=== PATIENT | female | born 1975 | race Caucasian/White ===

== ENCOUNTER 2019-06-03 14:49 | Emergency (ER) | payer MEDICAID, SELFPAY ==
[2019-06-03 15:01] VITALS: BP 113/82; PULSE 86; RESP 18; TEMP 37.4; O2SAT 100
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
== END 2019-06-03 15:44 | disposition home or self-care (01) ==
PROVIDERS: Emergency Provider Nurse Practitioner Family
DX: J06.9 Acute upper respiratory infection, unspecified (principal); S30.814A Abrasion of vagina and vulva, initial encounter; W50.4XXA Accidental scratch by another person, initial encounter; G25.81 Restless legs syndrome; F41.9 Anxiety disorder, unspecified; F32.9 Major depressive disorder, single episode, unspecified; I83.93 Asymptomatic varicose veins of bilateral lower extremities
CPT/HCPCS: 81003; 87804; 99213; G0463

== ENCOUNTER 2019-06-24 12:55 | Emergency (ER) | payer OTHER, SELFPAY ==
--- NOTE | 2019-06-24 13:03 | ED.URI ---
HPI - URI/Sore Throat General Chief Complaint: Upper Respiratory Infection Stated Complaint: pos sinus infection Time Seen by Provider: 06/24/19 13:05 Source: patient and RN notes reviewed Mode of arrival: ambulatory Limitations: no limitations History of Present Illness HPI Narrative: 43-year-old female presents with concern for sinus pain, pressure, ear pain for 2 months. Reports at the end of April she was given a round of amoxicillin for sinusitis, reports symptoms improved briefly however did not resolve and continue. She denies cough, fever, body aches, chills. Reports malaise. Reports taking Flonase, antihistamines with no relief. MD elicited complaint: nasal congestion Related Data Home Medications Medication Instructions Recorded Confirmed duloxetine [Cymbalta] 60 mg PO DAILY 06/24/19 06/24/19 montelukast [Singulair] 10 mg PO DAILY 06/24/19 06/24/19 ropinirole [Requip] 2 mg PO DAILY 06/24/19 06/24/19 Allergies Allergy/AdvReac Type Severity Reaction Status Date / Time hydrocodone Allergy Unknown Nausea and Verified 06/24/19 13:13 Vomiting rabeprazole Allergy Unknown Rash Verified 06/24/19 13:13 Sulfa (Sulfonamide Allergy Unknown Rash Verified 06/24/19 13:13 Antibiotics) Review of Systems Review of Systems: Narrative: CONSTITUTIONAL: Reports malaise. Denies chills, sweats, or fever. EYES: Denies visual changes, redness, or discharge. ENT: Reports rhinorrhea, congestion, sinus pain, otalgia. Denies sore throat. CARDIOVASCULAR: Denies chest pain, palpitations, or edema. RESPIRATORY: Denies cough or dyspnea. GASTROINTESTINAL: Denies abdominal pain, nausea, vomiting, diarrhea SKIN: Denies rash or itching. MUSCULOSKELETAL: Denies myalgia. NEUROLOGIC: Reports headache. All systems reviewed & are unremarkable except as noted in HPI and below PMFSH Past Medical History Medical History (Updated 06/24/19 @ 13:16 by Tessie Decker NP) Anxiety Asthma Depression Restless leg syndrome Umbilical hernia Varicose veins of both lower extremities Surgical History Surgical History (Updated 06/03/19 @ 15:55 by MEGHAN Garcia) History of cholecystectomy History of hernia surgery umbilical History of varicose vein ligation and stripping Family History Family History (Updated 06/03/19 @ 15:56 by MEGHAN Garcia) Grandparent Heart disease Grandparent Diabetes mellitus Social History Social History Smoking packs per day: 1 Smoking cigarettes per day: 20.0 Years smoked: 26 Smoking pack-years: 26.00 Smoking status: Current every day smoker Tobacco type: cigarettes Alcohol intake: current Substance use: never Substance use type: does not use Gender identity (if verbalized by the patient): Female Spiritual care concerns: No Agree to blood products: Yes Comments At time of signature, agree with nursing past medical, surgical, social and family history. There is no relevant family history pertinent to the presenting complaint Exam Narrative: Exam Narrative: GENERAL: Well-appearing, well-nourished, and in no acute distress. HEAD: Normocephalic EYES: PERRLA, conjunctivae clear ENT: Nares clear, turbinates edematous and erythematous, sinus tenderness. Mucous membranes moist. TM pearly dumont with dull light reflex bilaterally; no tragal tenderness. Oropharynx not erythematous without lesions. Tonsils not enlarged and without exudate, no drooling, no hoarseness, no trismus, uvula midline. NECK: Supple. No lymphadenopathy CHEST: Clear to auscultation, breath sounds equal. No wheezing, rhonchi, rales, or stridor. No respiratory distress, speaks in full sentences. HEART: Regular rate and rhythm. No murmur heard. SKIN: Warm, dry, no rash. NEURO: Alert and oriented x3. PSYCH: Normal mood and affect Course Course Emergency Course: Patient is aware of diagnosis, understands and agrees to treatment plan. Anti
[2019-06-24 13:04] VITALS: BP 144/70; PULSE 79; RESP 18; TEMP 36.8; O2SAT 100
== END 2019-06-24 13:27 | disposition home or self-care (01) ==
PROVIDERS: Emergency Provider Nurse Practitioner; PCP Family Medicine
DX: J01.90 Acute sinusitis, unspecified (principal); F17.210 Nicotine dependence, cigarettes, uncomplicated; F41.9 Anxiety disorder, unspecified; J45.909 Unspecified asthma, uncomplicated; F32.9 Major depressive disorder, single episode, unspecified; G25.81 Restless legs syndrome
CPT/HCPCS: 99213; G0463

== ENCOUNTER 2019-09-08 14:00 | Emergency (ER) | payer OTHER, SELFPAY ==
[2019-09-08 14:13] VITALS: BP 124/70; PULSE 75; RESP 16; TEMP 37.1; O2SAT 99
--- NOTE | 2019-09-08 14:24 | ED.LOWEXIN ---
HPI - Extremity Injury (Lower) General Chief Complaint: Extremity Injury, Lower Stated Complaint: possible insect bite left foot Time Seen by Provider: 09/08/19 14:24 Source: patient and RN notes reviewed History of Present Illness HPI Narrative: Patient is a 43-year-old female who presents the urgent care with complaints of a bee sting to the top of the left foot. Patient states it happened approximately 1 week ago and she has been using Benadryl and anti-itch cream. Patient states that it seems to have gotten more tender with surrounding redness and swelling. Patient denies of any known fever, chills, nausea, vomiting. States that she has had a reaction in the past to a wasp. Denies of any shortness of breath or chest pain. No other acute complaints. No acute distress noted. Patient read the plan of care. Related Data Allergies Allergy/AdvReac Type Severity Reaction Status Date / Time hydrocodone Allergy Unknown Nausea and Verified 06/24/19 13:13 Vomiting rabeprazole Allergy Unknown Rash Verified 06/24/19 13:13 Sulfa (Sulfonamide Allergy Unknown Rash Verified 06/24/19 13:13 Antibiotics) Review of Systems Review of Systems: Narrative: CONSTITUTIONAL: Denies fever, chills, or sweats. EYES: Denies visual changes, redness, or discharge. ENT: Denies rhinorrhea, congestion, sore throat, or otalgia. CARDIOVASCULAR: Denies chest pain, palpitations, or edema. RESPIRATORY: Denies cough or dyspnea. GASTROINTESTINAL: Denies abdominal pain, nausea, vomiting, or diarrhea. GENITOURINARY: Denies dysuria or hematuria. SKIN: Reports of a bee sting to the top of the left foot MUSCULOSKELETAL: Denies back pain, joint pain, or myalgia. NEUROLOGIC: Denies headache, numbness, or weakness. All other systems reviewed are negative, except as documented in HPI. [facility] Past Medical History Medical History (Updated 09/08/19 @ 14:37 by MEGHAN Lozano) Anxiety Asthma Depression Restless leg syndrome Umbilical hernia Varicose veins of both lower extremities Surgical History Surgical History (Updated 06/03/19 @ 15:55 by MEGHAN Garcia) History of cholecystectomy History of hernia surgery umbilical History of varicose vein ligation and stripping Family History Family History (Updated 06/03/19 @ 15:56 by MEGHAN Garcia) Grandparent Heart disease Grandparent Diabetes mellitus Social History Social History Smoking packs per day: 1 Smoking cigarettes per day: 20.0 Years smoked: 26 Smoking pack-years: 26.00 Smoking status: Current every day smoker Tobacco type: cigarettes Alcohol intake: current Substance use: never Substance use type: does not use Gender identity (if verbalized by the patient): Female Spiritual care concerns: No Agree to blood products: Yes Comments At the time of my signature, I reviewed and agree with the nursing past medical, surgical, social, and family history. There is no relevant family history pertinent to the patient complaint. Exam Narrative: Exam Narrative: GENERAL: This is a well-nourished, well-developed patient, in no apparent distress. HEAD: normocephalic, atraumatic. EYES: PERRL. Sclera clear/white. Vision is grossly intact. EARS: External ears normal NOSE: External nose normal with no obvious nasal discharge, nares without redness, no rhinorrhea. THROAT: Mucous membranes moist NECK: Neck supple SKIN: warm, intact with no suspicious lesions or rash, good texture and turgor. NEURO: awake, alert, and oriented to person, place and time. There were no obvious focal neurologic abnormalities. EXTREMITIES: Mild edema and erythema noted to the dorsal aspect of the left foot approximately 4 x 4 cm with mild tenderness. Left pedal pulse within normal limits with capillary refill less than 2 seconds Course Vital Signs Vital signs: Vital Signs Temperature 98.8 F 09/08/19 14:13 Pulse
== END 2019-09-08 14:58 | disposition home or self-care (01) ==
PROVIDERS: Emergency Provider Nurse Practitioner Family; PCP Family Medicine
DX: T63.444A Toxic effect of venom of bees, undetermined, initial encounter (principal); F17.210 Nicotine dependence, cigarettes, uncomplicated
CPT/HCPCS: 99213; G0463

== ENCOUNTER 2019-10-17 10:59 | Outpatient (CLI) | payer OTHER, SELFPAY ==
--- NOTE | ~2019-10-17 | US_ITS ---
EXAMINATION: US pelvic complete w TV DATE: 10/17/2019 11:54 INDICATION: Abnormal uterine bleeding. IUD check. Comparison:Ultrasound dated 01/13/2014 TECHNIQUE: Multiple transabdominal and endovaginal sonographic images of the pelvis performed. FINDINGS: The uterus measures 8.6 x 3.5 x 4.5 cm. IUD is identified in the lower uterine segment. The endometrial complex measures 4 mm. The right ovary measures 3.4 x 3.2 x 2.7 cm and the left ovary not visualized. There are follicles of the right ovary, largest measuring 1.4 cm. There is no free fluid in the pelvis. There are no abnor mal masses seen on either side. IMPRESSION: 1. IUD present in the lower uterine segment. Otherwise, unremarkable pelvic ultrasound. Reviewed, dictated and finalized at location A. IMPRESSION: 1. IUD present in the lower uterine segment. Otherwise, unremarkable pelvic ult rasound.
== END 2019-10-17 11:00 | disposition home or self-care (01) ==
PROVIDERS: PCP Family Medicine
DX: N93.9 Abnormal uterine and vaginal bleeding, unspecified (principal); Z97.5 Presence of (intrauterine) contraceptive device
CPT/HCPCS: 76830; 76856

== ENCOUNTER 2020-05-04 09:04 | Emergency (ER) | payer OTHER, SELFPAY ==
--- NOTE | 2020-05-04 09:19 | ED.URI ---
HPI - URI/Sore Throat General Chief Complaint: Upper Respiratory Infection Stated Complaint: Upper respiratory Source: patient History of Present Illness HPI Narrative: Patient is a 44 yo female who reports that she has had sinus pain, congestion and headache x 9 days. She reports person living in her household had encounter with positive Covid. She also reports sore throat, body aches, fatigue, mild cough. She denies fever, or other complaints. She reports using Flonase without relief. She reports a history of sinus infections in the past. Related Data Allergies Allergy/AdvReac Type Severity Reaction Status Date / Time hydrocodone Allergy Mild Nausea and Verified 05/04/20 09:15 Vomiting rabeprazole Allergy Unknown Rash Verified 06/24/19 13:13 Sulfa (Sulfonamide Allergy Unknown Rash Verified 06/24/19 13:13 Antibiotics) Review of Systems Review of Systems: Narrative: CONSTITUTIONAL: Denies fever, chills, or sweats. EYES: Denies visual changes, redness, or discharge. ENT: Denies rhinorrhea, reports congestion and sore throat. CARDIOVASCULAR: Denies chest pain, palpitations, or edema. RESPIRATORY: Reports cough, denies dyspnea. GASTROINTESTINAL: Denies abdominal pain, nausea, vomiting, or diarrhea. GENITOURINARY: Denies dysuria or hematuria. SKIN: Denies rash or itching. MUSCULOSKELETAL: Denies back pain, joint pain, or myalgia. NEUROLOGIC: Reports headache, denies numbness, dizziness, or weakness. PSYCHIATRIC: Denies anxiety or depression. [facility] Past Medical History Medical History Anxiety Asthma Depression Restless leg syndrome Umbilical hernia Varicose veins of both lower extremities Surgical History Surgical History History of cholecystectomy History of hernia surgery umbilical History of varicose vein ligation and stripping Family History Family History Grandparent Heart disease Grandparent Diabetes mellitus Social History Social History Smoking packs per day: 1 Smoking cigarettes per day: 20.0 Years smoked: 26 Smoking pack-years: 26.00 Smoking status: Current every day smoker Tobacco type: cigarettes Alcohol intake: current Substance use: never Substance use type: does not use Gender identity (if verbalized by the patient): Female Spiritual care concerns: No Agree to blood products: Yes Comments At the time of signature, I have reviewed and agree with nursing past medical, surgical, social, and family history unless otherwise noted. Please see nursing chart for further information. There is no relevant family history pertinent to the presenting complaint. Exam Narrative: Exam Narrative: GENERAL: Well-appearing, well-nourished, and in no acute distress. HEAD: Normocephalic, atraumatic. EYES: EOMI. No redness or drainage. ENT: Mucous membranes pink and moist. Nares clear. No rhinorrhea. Throat with mild erythema. Uvula midline. Frontal and maxillary sinus pressure with palpation. NECK: AROM. Supple. No lymphadenopathy. CHEST: No respiratory distress. HEART: Regular rate and rhythm. EXTREMITIES: Normal range of motion. SKIN: Warm, dry, no rash. NEURO: No focal deficits. Alert and oriented x3. Gait steady. PSYCH: Normal affect. No signs of depression or anxiety. Course Vital Signs Vital signs: Vital Signs Temperature 36.8 C 05/04/20 09:27 Pulse Rate 82 05/04/20 09:27 Respiratory Rate 16 05/04/20 09:27 Blood Pressure 119/64 05/04/20 09:27 Pulse Oximetry 99 05/04/20 09:27 Temperature 36.8 C 05/04/20 09:27 Pulse Rate 82 05/04/20 09:27 Respiratory Rate 16 05/04/20 09:27 Blood Pressure 119/64 05/04/20 09:27 Pulse Oximetry 99 05/04/20 09:27 MDM - URI/Sore Throat MDM Narrative Medical decision
[2020-05-04 09:27] VITALS: BP 119/64; PULSE 82; RESP 16; TEMP 36.8; O2SAT 99
[2020-05-05 14:05] LABS: SARS-CoV-2 RNA PCR Positive
== END 2020-05-04 09:47 | disposition home or self-care (01) ==
PROVIDERS: Emergency Provider Nurse Practitioner; PCP Family Medicine
DX: U07.1 COVID-19 (principal); J45.909 Unspecified asthma, uncomplicated; G25.81 Restless legs syndrome; I83.93 Asymptomatic varicose veins of bilateral lower extremities; F17.210 Nicotine dependence, cigarettes, uncomplicated
CPT/HCPCS: 99213; C9803; G0463; U0003; U0005

== ENCOUNTER → 2020-06-21 03:10 | Outpatient (CLI) | payer OTHER, SELFPAY ==
[2020-06-21 21:05] LABS: SARS-CoV-2 RNA PCR Positive
== END ==
PROVIDERS: PCP Family Medicine; Visit Provider Internal Medicine Critical Care Medicine
DX: Z01.812 Encounter for preprocedural laboratory examination (principal); U07.1 COVID-19
CPT/HCPCS: C9803; U0003; U0005

== ENCOUNTER 2020-10-15 11:34 | Emergency (ER) | payer OTHER, SELFPAY ==
[2020-10-15 11:45] VITALS: BP 130/85; PULSE 78; RESP 18; TEMP 36.6; O2SAT 100
--- NOTE | 2020-10-15 11:57 | ED.FEMALEGU ---
HPI - Female Genitourinary General Chief complaint: Urogenital-Female Stated complaint: Sinus,Bladder Time Seen by Provider: 10/15/20 11:57 Source: patient and RN notes reviewed Mode of arrival: ambulatory Limitations: no limitations History of Present Illness HPI Narrative: 44-year-old female presents to the [facility] with 2 separate complaints. Patient states complaint #1 that she thinks she has a UTI. Has had intermittent abd discomfort over the last 2 to 3 weeks suprapubic pressure and urinary frequency. Denies burning. Denies fevers. Denies nausea vomiting or diarrhea. states that she did start her period today. Reports that it does not feel like her normal. Pain. 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 Has tried [id number] products with no relief. States sinus symptoms have been going on for almost 3 weeks, worse over the last couple of days. Related Data Allergies Allergy/AdvReac Type Severity Reaction Status Date / Time hydrocodone Allergy Mild Nausea and Verified 10/15/20 12:04 Vomiting rabeprazole Allergy Unknown Rash Verified 10/15/20 12:04 Sulfa (Sulfonamide Allergy Unknown Rash Verified 10/15/20 12:04 Antibiotics) Review of Systems Review of Systems: All systems reviewed & are unremarkable except as noted in HPI and below Constitutional: Constitutional: Reports no additional constitutional complaints, Denies chills and Denies fatigue Eyes: Eyes: Reports no additional eye complaints, Denies change in vision and Denies photophobia ENT: Reports as per HPI and Reports nasal congestion Cardiovascular: Cardiovascular: Reports no additional cardiovascular complaints and Denies chest pain Respiratory: Respiratory: Reports no additional respiratory complaints, Denies cough, Denies dyspnea and Denies wheezing Gastrointestinal: Gastrointestinal: Reports abdominal pain (Lower over the last 2 to 3 weeks, none today), Denies nausea and Denies vomiting Genitourinary: Genitourinary: Reports as per HPI and Reports nocturia Musculoskeletal: Musculoskeletal: Reports no additional musculoskeletal complaints Integumentary/Breasts: Skin/Breast: Reports system reviewed and no additional complaints, except as docu Neurologic: Reports system reviewed and no additional complaints, except as documented Psychiatric: Psychiatric: Reports no additional psychiatric complaints Allergic/Immunologic: Allergic/Immunologic: Reports no additional allergic/immunologic complaints, Denies lip swelling, Denies throat swelling and Denies tongue swelling PMF Past Medical History Medical History Anxiety Asthma Depression Restless leg syndrome Umbilical hernia Varicose veins of both lower extremities Surgical History Surgical History History of cholecystectomy History of hernia surgery umbilical History of varicose vein ligation and stripping Family History Family History Grandparent Heart disease Grandparent Diabetes mellitus Grandparent Hypertension Family history of coronary artery disease Family history of heart disease in male family member before age 55 Diabetes mellitus Family history of blood dyscrasia Family history of arthritis Family history of chronic obstructive pulmonary disease Family history of Alzheimer's disease Family history of lung cancer, Onset Age: 80 Family history of dementia Mother Family history of malignant neoplasm of breast in first degree relative Diabetes mellitus Family history of hypercholesterolemia Family history of malignant neoplasm of breast Sibling Family history of hypercholesterolemia Social History Social History Smoking packs per day: 1 Smoking cigar
== END 2020-10-15 12:15 | disposition home or self-care (01) ==
PROVIDERS: Emergency Provider Nurse Practitioner; PCP Family Medicine
DX: J01.40 Acute pansinusitis, unspecified (principal); F17.210 Nicotine dependence, cigarettes, uncomplicated; J45.909 Unspecified asthma, uncomplicated; G25.81 Restless legs syndrome; I83.93 Asymptomatic varicose veins of bilateral lower extremities
CPT/HCPCS: 81003; 99213; G0463

== ENCOUNTER 2020-12-28 16:58 | Outpatient (CLI) | payer OTHER, SELFPAY ==
--- NOTE | ~2020-12-28 | MM_ITS ---
EXAMINATION: MM screening irene BI w theresa HISTORY: Screening mammogram TECHNIQUE: Craniocaudal and mediolateral oblique 3-D tomosynthesis images were obtained and synthetic 2-D images were generated. CAD analysis was submitted and interpreted. COMPARISON: 01/11/2019, 01/13/2014 bilateral digital screening mammogram examinations BREAST PARENCHYMAL COMPOSITION: There are scattered areas of fibroglandular density. FINDINGS: There is no evidence of suspicious mass, calcification, or architectural distortion to sugg est malignancy in either breast. There has been no suspicious interval change. IMPRESSION: 1. No mammographic evidence of malignancy. 2. Recommend routine screening mammography in one year. BI-RADS Category 1: Negative Reviewed, dictated and finalized at location A.
== END 2020-12-28 16:59 | disposition home or self-care (01) ==
LOC: ANHIMG 17:03
PROVIDERS: PCP Family Medicine; Visit Provider Advanced Practice Midwife
DX: Z12.31 Encounter for screening mammogram for malignant neoplasm of breast (principal)
CPT/HCPCS: 77063; 77067

== ENCOUNTER 2021-02-04 11:28 | Outpatient (CLI) | payer OTHER, SELFPAY ==
--- NOTE | ~2021-02-04 | US_ITS ---
EXAMINATION: US venous doppler LE RT DATE: 02/04/2021 12:42 INDICATION: Right lower limb pain TECHNIQUE: Smith scale images without and with compression and Doppler images of the right lower extre mity veins were obtained. COMPARISON: 08/13/2015 FINDINGS: The right common femoral vein, profunda femoral vein, femoral vein, popliteal vein, peronea l trunk, posterior tibial veins, and greater saphenous vein are patent. Superficial phlebitis is note d in the lower thigh. IMPRESSION: 1. Patent right lower extremity veins. No evidence of deep venous thrombosis. 2. Superficial phlebitis of the lower thigh. Reviewed, dictated and finalized at location A.
== END 2021-02-04 11:29 | disposition home or self-care (01) ==
LOC: ANHIMG 11:34
PROVIDERS: PCP Family Medicine; Visit Provider Family Medicine
DX: M79.604 Pain in right leg (principal); I80.8 Phlebitis and thrombophlebitis of other sites
CPT/HCPCS: 93971

== ENCOUNTER 2021-02-16 10:22 | Emergency (ER) | payer OTHER, SELFPAY ==
--- NOTE | ~2021-02-16 | US_ITS ---
EXAMINATION:US venous doppler LE RT INDICATION:Right lower extremity pain and swelling TECHNIQUE: Multiple grayscale, color flow and Doppler images of the right lower extremity deep venous systems were obtained and reviewed. COMPARISON:02/04/2021 FINDINGS: The common femoral, superficial femoral and popliteal veins demonstrate normal respiratory variation, augmentation and compressibility. Color flow is also seen within the posterior tibial, pe roneal, greater saphenous and profunda veins. IMPRESSION: 1: No lower extremity deep venous thrombosis. Reviewed, dictated and finalized at location A. HER OPERATOR
[2021-02-16 10:28] VITALS: BP 120/63; PULSE 81; RESP 18; TEMP 36.2; O2SAT 100
--- NOTE | 2021-02-16 11:02 | ED.LOWEXIN ---
HPI - Extremity Injury (Lower) General Chief Complaint: Extremity Injury, Lower <Yohana Butler PA-C - Last Filed: 02/16/21 13:12> Stated Complaint: right leg pain. hx thrombophlebitis <Yohana Butler PA-C - Last Filed: 02/16/21 13:12> Time Seen by Provider: 02/16/21 10:51 <SHANNON Black Last Filed: 02/16/21 13:12> Source: patient <SHANNON Black Last Filed: 02/16/21 13:12> Mode of arrival: ambulatory <SHANNON Black Last Filed: 02/16/21 13:12> Limitations: no limitations <SHANNON Black Last Filed: 02/16/21 13:12> History of Present Illness HPI Narrative: This is a 45 year old female that presents to the ER for right lower extremity pain present over the last week and a half. Reports she was diagnosed with superficial thrombophlebitis by her primary provider. She had an ultrasound of the leg. Reports she has been on scheduled anti-inflammatories and has taken an antibiotic without relief. Reports the area of pain is now larger. The pain is radiating into her calf as well. Denies fever, chest pain, or shortness of breath. <Yohana Butler PA-C - Last Filed: 02/16/21 13:12> Related Data Home Medications: Home Medications Medication Instructions Recorded Confirmed Lactobacillus rhamnosus GG 10 1 cap PO DAILY 02/04/21 billion cell capsule <SHANNON Black Last Filed: 02/16/21 13:12> Allergies/Adverse Reactions: Allergies Allergy/AdvReac Type Severity Reaction Status Date / Time hydrocodone Allergy Mild Nausea and Verified 02/16/21 11:00 Vomiting rabeprazole Allergy Unknown Rash Verified 02/16/21 11:00 Sulfa (Sulfonamide Allergy Unknown Rash Verified 02/16/21 11:00 Antibiotics) <SHANNON Black Last Filed: 02/16/21 13:12> Review of Systems Review of Systems: CONSTITUTIONAL: Denies fever SKIN: Denies rash MUSCULOSKELETAL: Reports myalgia. NEUROLOGIC: Denies numbness <Yohana Butler PA-C - Last Filed: 02/16/21 13:12> All systems reviewed & are unremarkable except as noted in HPI and below <Yohana Butler PA-C - Last Filed: 02/16/21 13:12> [facility] Past Medical History Medical History: Medical History Anxiety Asthma Depression Restless leg syndrome Umbilical hernia Varicose veins of both lower extremities <Yohana Butler PA-C - Last Filed: 02/16/21 13:12> Surgical History Surgical History: Surgical History History of cholecystectomy History of hernia surgery umbilical History of varicose vein ligation and stripping <Yohana Butler PA-C - Last Filed: 02/16/21 13:12> Family History Family History: Family History Grandparent Heart disease Grandparent Diabetes mellitus Grandparent Hypertension Family history of coronary artery disease Family history of heart disease in male family member before age 55 Diabetes mellitus Family history of blood dyscrasia Family history of arthritis Family history of chronic obstructive pulmonary disease Family history of Alzheimer's disease Family history of lung cancer, Onset Age: 80 Family history of dementia Mother Family history of malignant neoplasm of breast in first degree relative Diabetes mellitus Family history of hypercholesterolemia Family history of malignant neoplasm of breast Sibling Family history of hypercholesterolemia <Yohana Butler PA-C - Last Filed: 02/16/21 13:12> Social History Social History: Social History Smoking packs per day: 1 Smoking cigarettes per day: 20.0 Years smoked: 26 Smoking pack-years: 26.00 Smoking status: Current every day smoker Tobacco type: cigarettes Second hand tobacco smoke exposure: Yes Alcohol
[2021-02-16 11:35] LABS: Basophils Percent Auto 0.6 % (0.2-1.2); Hematocrit 37.6 % (37.0-47.0); Hemoglobin 12.8 g/dL (12.0-15.0); Immature Granulocyte Absolute 0.02 K/mm3 (0.00-0.031); Immature Granulocyte Percent A 0.4 % (0-0.5); Lymphocytes Absolute Auto 1.92 K/mm3 (0.9-3.2); Lymphocytes Percent Auto 39.9 % (18.3-44.2); Monocytes Absolute Auto 0.3 K/mm3 (0.1-0.6); Monocytes Percent Auto 5.2 % (2.6-8.5); Neutrophils Absolute Auto 2.6 K/mm3 (1.3-6.7); Neutrophils Percent Auto 53.9 % (45.5-73.1); Platelet Count Result 186 k/mm3 (150-375); Red Blood Count 4.13 M/mm3 (4.2-5.4); Red Cell Distribution Width 12.9 % (11.5-14.5); White Blood Count 4.8 K/mm3 (4.5-10.0)
[2021-02-16 11:47] LABS: Anion Gap 3 mmol/L (8-16); Blood Urea Nitrogen 16 mg/dL (7-17); CRP < 0.5 mg/dL (<1.0); Calcium 8.6 mg/dL (8.4-10.2); Carbon Dioxide 27 mmol/L (22-30); Chloride 109 mmol/L (98-107); Estimated CRCL calculation 92 ml/min; Estimated Glomerular Filt Rate > 60; Glucose 96 mg/dL (65-110); Potassium 3.7 mmol/L (3.4-5.0); Sodium 139 mmol/L (137-145)
[2021-02-16 11:48] LABS: INR 0.9; Prothrombin Time 12.1 Seconds (11.1-14.7)
[2021-02-16 11:49] LABS: Partial Thromboplastin Time 25.9 SECONDS (22.3-36.8)
[2021-02-16 12:48] LABS: Erythrocyte Sedimentation Rate 15 mm/hr (0-20)
[2021-02-16 13:42] VITALS: BP 137/71; PULSE 68; RESP 14; TEMP 36.5; O2SAT 100
--- NOTE | 2021-02-16 13:45 | PC.NURSE ---
Infusaport flushed with appropriate dose of heparin. Infusaport discontinued.
== END 2021-02-16 13:45 | disposition home or self-care (01) ==
PROVIDERS: Physician Assistant; Emergency Provider Emergency Medicine; PCP Family Medicine
DX: I83.811 Varicose veins of right lower extremity with pain (principal); F17.210 Nicotine dependence, cigarettes, uncomplicated; F41.9 Anxiety disorder, unspecified; J45.909 Unspecified asthma, uncomplicated; F32.9 Major depressive disorder, single episode, unspecified; G25.81 Restless legs syndrome
CPT/HCPCS: 36415; 80048; 85025; 85610; 85652; 85730; 86140; 93971; 99284

== ENCOUNTER 2021-06-15 11:31 | Emergency (ER) | payer OTHER, SELFPAY ==
--- NOTE | ~2021-06-15 | CT_ITS ---
EXAMINATION: CT brain wo con INDICATION: Head injury COMPARISON: None TECHNIQUE: Standard unenhanced head CT. The dose-length product (DLP) was 605.33 mGy-cm. The mA was a djusted according to patient size. Iterative reconstruction technique was employed. FINDINGS: There is no intracranial hemorrhage, acute infarction, or abnormal mass lesion. The ventric les are normal. There is no abnormal mass effect or midline shift. The dumont-white matter differentiat ion is normal. The basal cisterns are patent. The orbits are normal. The paranasal sinuses, mastoids and calvarium are normal. IMPRESSION: 1. No acute intracranial abnormality. Reviewed, dictated and finalized at location B. BROILER OR FRY
[2021-06-15 11:34] VITALS: BP 139/69; PULSE 82; RESP 18; TEMP 36.1; O2SAT 100
--- NOTE | 2021-06-15 14:01 | ED.HEATRA ---
HPI - Head Injury General Chief complaint: Dizziness Stated complaint: dizzy/hit head Time Seen by Provider: 06/15/21 14:00 Source: patient Mode of arrival: ambulatory Limitations: no limitations History of Present Illness HPI Narrative: Patient is a 45-year-old female complaining of head pain accompanied by feeling dizzy after hitting her head on a cabinet yesterday. Patient states that her dizziness only occurs when she suddenly gets up too fast from a sitting position or sudden head movement. Patient currently denies being dizzy. Patient denies any loss of consciousness. Patient denies any other pain or injury. Patient denies any speech or visual disturbance, focal weakness or numbness, unsteady gait, chest pain, shortness of breath, abdominal pain, nausea or vomiting. Related Data Home Medications Medication Instructions Recorded Confirmed Lactobacillus rhamnosus GG 10 1 cap PO DAILY 02/04/21 04/28/21 billion cell capsule Allergies Allergy/AdvReac Type Severity Reaction Status Date / Time hydrocodone Allergy Mild Nausea and Verified 04/28/21 10:25 Vomiting rabeprazole Allergy Unknown Rash Verified 04/28/21 10:25 Sulfa (Sulfonamide Allergy Unknown Rash Verified 04/28/21 10:25 Antibiotics) Review of Systems Review of Systems: All systems reviewed & are unremarkable except as noted in HPI and below Constitutional: Constitutional: Denies body ache(s), Denies chills, Denies excessive sweating, Denies fatigue, Denies fever(s), Denies headache(s), Denies lethargy, Denies malaise, Denies weakness and Denies weight loss Eyes: Eyes: Denies blurry vision, Denies change in vision and Denies loss of vision ENT: Denies dizziness, Denies ear discharge, Denies headache(s), Denies lip swelling, Denies epistaxis, Denies nasal congestion, Denies neck pain, Denies throat swelling and Denies tongue swelling Cardiovascular: Cardiovascular: Denies chest pain, Denies chest pain at rest, Denies chest pain with activity, Denies diaphoresis, Denies rapid heart rate, Denies edema, Denies irregular heart rhythm, Denies lightheadedness, Denies palpitations, Denies dyspnea and Denies dyspnea on exertion Respiratory: Respiratory: Denies chest congestion, Denies cough, Denies hemoptysis, Denies dyspnea and Denies dyspnea on exertion Gastrointestinal: Gastrointestinal: Denies abdominal pain, Denies melena, Denies hematochezia, Denies diarrhea, Denies nausea, Denies vomiting and Denies hematemesis Musculoskeletal: Musculoskeletal: Denies abnormal gait, Denies deformity, Denies joint swelling, Denies limited range of motion, Denies neck pain and Denies numbness Neurologic: Denies Abnormal speech present, Denies abnormal gait, Denies confusion, Denies headache(s), Denies focal weakness, Denies loss of vision, Denies numbness, Denies Other visual disturbances, Denies Sensory deficit (Neuro) and Denies weakness Psychiatric: Psychiatric: Denies confusion, Denies depression, Denies auditory hallucinations, Denies homicidal ideation and Denies suicidal ideation Endocrine: Endocrine: Denies cold intolerance, Denies excessive sweating, Denies fatigue, Denies heat intolerance and Denies palpitations Hematologic/Lymphatic: Hematologic/Lymphatic: Denies easy bleeding and Denies easy bruising Allergic/Immunologic: Allergic/Immunologic: Denies lip swelling, Denies throat swelling and Denies tongue swelling PMFSH Past Medical History Medical History Anxiety Asthma Depression Restless leg syndrome Umbilical hernia Varicose veins of both lower extremities Surgical History Surgical History History of cholecystectomy History of hernia surgery umbilical History of varicose vein ligation and stripping Family History Family History Grandparent Heart disease Grandparent Diabetes m
[2021-06-15 14:04] VITALS: PULSE 77; RESP 27
[2021-06-15 14:05] VITALS: BP 144/67; PULSE 81; RESP 19; O2SAT 100
--- NOTE | 2021-06-15 14:08 | PC.NURSE ---
PT REPORTS SHE HIT HER HEAD ON THE CORNER OF A SHELF YESTERDAY AT WORK AND HAS HAD BOUTS OFF DIZZINESS SINCE THAT TIME. DENIES ANY LOC. PT STATES I JUST WANT TO MAKE SURE I DON'T HAVE A CONCUSSION.
[2021-06-15 15:10] VITALS: BP 123/48; PULSE 69; RESP 14; O2SAT 97
== END 2021-06-15 15:10 | disposition home or self-care (01) ==
PROVIDERS: Emergency Provider Emergency Medicine; PCP Family Medicine
DX: S06.0X0A Concussion without loss of consciousness, initial encounter (principal); F17.210 Nicotine dependence, cigarettes, uncomplicated; F41.9 Anxiety disorder, unspecified; J45.909 Unspecified asthma, uncomplicated; F32.9 Major depressive disorder, single episode, unspecified; W22.03XA Walked into furniture, initial encounter
CPT/HCPCS: 70450; 99284

== ENCOUNTER 2021-06-28 08:12 | Outpatient (CLI) | payer OTHER, SELFPAY ==
--- NOTE | 2021-06-30 12:24 | WPDHOMESLEEP ---
Sleep Study - Home Unattended Date of Study: 06/28/21 Ordering Provider: Guerda Bustillo DO Interpreting Provider: Agueda Guzman DO Home Sleep Study Type: Apnea Link Air Height: 1.83 m Weight: 97.522 kg Body Mass Index: 29.1 Neck Circumference (inches): 16.5 [place]: 0 Reason for Sleep Study Previously diagnosed with moderate BUCKY. Her CPAP machine isn't working so she isn't currently using one. Sleep History Rosalinda is a 45-year-old female with borderline personality disorder, restless legs syndrome asthma, IBS, depression and previously diagnosed BUCKY that had a home sleep test ordered by her primary care doctor to requalify for PAP therapy. The patient was previously diagnosed with moderate sleep apnea and was using her CPAP machine but then the machine broke. She rarely awakens from sleep short of breath. She occasionally awakens at night with heartburn, belching or cough. She frequently snores but it is rarely loud enough that others complain. She constantly has trouble sleeping when she has a cold. She rarely wakes up gasping for air throughout the night. She occasionally has breathing problems at night observed by others. She rarely sweats excessively at night. She denies heart palpitations or irregular heartbeats during the night. She denies falling asleep during the day and while driving. She denies cataplexy. She frequently has trouble at work due to sleepiness. She rarely feels unable to move while waking up or falling asleep. She rarely experiences vivid dreamlike scenes upon awakening or falling asleep. She frequently has nightmares. She occasionally remembers her dreams. She occasionally has thoughts racing through her mind. She occasionally feels sad or depressed. She frequently has anxiety. She occasionally has muscular tension. She frequently notices parts of her body jerk. She frequently kicks during the night. She frequently has crawling and aching feelings in her legs and occasionally has leg pain during the night. She rarely grinds her teeth during sleep rarely awakens with morning jaw pain. She is frequently bothered by pain during the day and frequently awakened by pain during the night. She frequently wakes up feeling stiff in the morning with sore or achy muscles. She frequently wakes up with pain in the neck, spine or other joints. She goes to bed at 10:30 p.m. on weekdays and midnight on the weekends. It takes her 30-60 minutes to fall asleep. She wakes up 4-6 times throughout the night. When she awakens, she will change positions and try to go back to sleep. She can fall back asleep within 5-15 minutes. She wakes up at 7:30 a.m. on the weekdays the between 9 and 10:00 a.m. on the weekends. She typically gets 7-9 hours of sleep per night. She will stay in bed for 15 minutes after waking up in the morning. She currently lives with her boyfriend and 20-year-old son. She does not consume any caffeinated beverages within 2 hours of bedtime. She does not engage in physical exercise before bedtime. She will read and watch television before falling asleep. She does not take naps in the afternoon or the evening. She drinks 1-3 caffeinated beverages per day. She will have 1 alcoholic beverage per day. She will smoke 1 pack of cigarettes per day. She denies recreational drug use. [facility] Past Medical History Medical History Anxiety Asthma Depression Restless leg syndrome Umbilical hernia Varicose veins of both lower extremities Surgical History Surgical History History of cholecystectomy History of hernia surgery umbilical History of varicose vein ligation and stripping Family History Family History Grandparent Heart disease Grandparent Diabetes mellitus Grandparent Hypertension Family history of coronary a
[2021-06-30 12:35] VITALS: BMI 29.1
== END 2021-06-29 10:40 | disposition home or self-care (01) ==
LOC: ANHCSM 08:13
PROVIDERS: PCP Family Medicine; Visit Provider Family Medicine
DX: G47.9 Sleep disorder, unspecified (principal)
CPT/HCPCS: 95806

== ENCOUNTER 2021-07-20 07:28 | Outpatient (CLI) | payer OTHER, SELFPAY ==
--- NOTE | 2021-08-04 17:27 | WPDSLEEPSTUD ---
Sleep Study Date of Study: 07/20/21 Ordering Provider: Guerda Bustillo DO Interpreting Physician: Agueda Guzman DO Sleep Study Type: Polysomnogram Height: 1.83 m Weight: 99.79 kg Body Mass Index: 29.8 Neck Circumference (inches): 13.5 [place]: 1 Reason for Sleep Study The patient had a HSAT on 06/28/2021 to requalify for PAP Therapy. She was previously on CPAP due to moderate sleep apnea. Recommended to have in-lab Split study. Sleep History Rosalinda is a 45-year-old female with borderline personality disorder, restless legs syndrome, asthma, IBS, depression and previously diagnosed BUCKY that had a home sleep test ordered by her primary care doctor to requalify for PAP therapy. The patient was previously diagnosed with moderate sleep apnea and was using her CPAP machine but then the machine broke. She rarely awakens from sleep short of breath. She occasionally awakens at night with heartburn, belching or cough. She frequently snores but it is rarely loud enough that others complain. She constantly has trouble sleeping when she has a cold. She rarely wakes up gasping for air throughout the night. She occasionally has breathing problems at night observed by others. She rarely sweats excessively at night. She denies heart palpitations or irregular heartbeats during the night. She denies falling asleep during the day and while driving. She denies cataplexy. She frequently has trouble at work due to sleepiness. She rarely feels unable to move while waking up or falling asleep. She rarely experiences vivid dreamlike scenes upon awakening or falling asleep. She frequently has nightmares. She occasionally remembers her dreams. She occasionally has thoughts racing through her mind. She occasionally feels sad or depressed. She frequently has anxiety. She occasionally has muscular tension. She frequently notices parts of her body jerk. She frequently kicks during the night. She frequently has crawling and aching feelings in her legs and occasionally has leg pain during the night. She rarely grinds her teeth during sleep rarely awakens with morning jaw pain. She is frequently bothered by pain during the day and frequently awakened by pain during the night. She frequently wakes up feeling stiff in the morning with sore or achy muscles. She frequently wakes up with pain in the neck, spine or other joints. She goes to bed at 10:30 p.m. on weekdays and midnight on the weekends. It takes her 30-60 minutes to fall asleep. She wakes up 4-6 times throughout the night. When she awakens, she will change positions and try to go back to sleep. She can fall back asleep within 5-15 minutes. She wakes up at 7:30 a.m. on the weekdays the between 9 and 10:00 a.m. on the weekends. She typically gets 7-9 hours of sleep per night. She will stay in bed for 15 minutes after waking up in the morning. She currently lives with her boyfriend and 20-year-old son. She does not consume any caffeinated beverages within 2 hours of bedtime. She does not engage in physical exercise before bedtime. She will read and watch television before falling asleep. She does not take naps in the afternoon or the evening. She drinks 1-3 caffeinated beverages per day. She will have 1 alcoholic beverage per day. She will smoke 1 pack of cigarettes per day. She denies recreational drug use. [facility] Past Medical History Medical History Anxiety Asthma Depression Restless leg syndrome Umbilical hernia Varicose veins of both lower extremities Surgical History Surgical History History of cholecystectomy History of hernia surgery umbilical History of varicose vein ligation and stripping Family History Family History Grandparent Heart disease Grandparent Diabetes mellitus Grandparent Hypertensi
[2021-08-04 17:35] VITALS: BMI 29.8
== END 2021-07-21 06:35 | disposition home or self-care (01) ==
LOC: ANHCSM 07:29
PROVIDERS: PCP Family Medicine; Visit Provider Family Medicine
DX: G47.9 Sleep disorder, unspecified (principal)
CPT/HCPCS: 95810

== ENCOUNTER → 2021-08-09 10:02 | Outpatient (CLI) | payer OTHER, SELFPAY ==
--- NOTE | ~2021-08-09 | XR_ITS ---
EXAMINATION: XR hand BI arthritis min 3V DATE: 08/09/2021 10:18 INDICATION: Myalgia, unspecified site, worsening TECHNIQUE: Posteroanterior, lateral, and oblique views of the left and of the right hands as well as a ballcatchers view of both hands were obtained. COMPARISON: None. FINDINGS: Bone alignment is normal. There is no fracture. No abnormal erosions are identified. The soft tissues are unremarkable. IMPRESSION: 1. Unremarkable hand radiographs. Reviewed, dictated and finalized at location A.
== END ==
PROVIDERS: PCP Family Medicine; Visit Provider Family Medicine
DX: M79.10 Myalgia, unspecified site (principal); M25.50 Pain in unspecified joint
CPT/HCPCS: 73130

== ENCOUNTER → 2021-09-28 10:25 | Outpatient (CLI) | payer OTHER, SELFPAY ==
--- NOTE | ~2021-09-28 | XR_ITS ---
EXAM: [id number] DATE: 09/28/2021 10:44 HISTORY: M54.2 - Cervicalgia, pain left side and posterior neck . COMPARISON: None available. FINDINGS: Craniocervical association and atlantoaxial joint are normal. No prevertebral soft tissue swelling. Cervical spine straightening. Lordosis reversal at C5-6. 1 to 2 mm anterolisthesis of C5 on C6. Vertebral body heights maintained. Mild disc space narrowing at C6-7. Mild facet hypertrophy on the left at C5-6 and C6-7. IMPRESSION: Grade 1 anterolisthesis of C5 on C6. Mild degenerative disc disease at C6-7. Lower cervic al facet arthropathy. Reviewed, dictated and finalized at location K. IMPRESSION: Grade 1 anterolisthesis of C5 on C6. Mild degenerative disc disease at C6-7. Lower cervical facet arthropathy.
== END ==
PROVIDERS: PCP Family Medicine; Visit Provider Family Medicine
DX: M47.812 Spondylosis without myelopathy or radiculopathy, cervical region (principal)
CPT/HCPCS: 72040

== ENCOUNTER 2021-10-31 09:38 | Outpatient (CLI) | payer OTHER, SELFPAY ==
--- NOTE | ~2021-10-31 | MR_ITS ---
EXAMINATION: MR cervical spine wo con DATE: 10/31/2021 10:17 INDICATION: TECHNIQUE: Magnetic resonance imaging (MRI) of the cervical spine was performed without intravenous c ontrast. Sequences included sagittal T2-weighted FSE, sagittal T2-weighted FS FSE, sagittal T1-weight ed FSE, axial MERGE, and axial T2-weighted FSE. COMPARISON: Xray C spine 09/28/2021. FINDINGS: Craniocervical association and atlantoaxial joint are intact. 2 mm anterolisthesis of C5 on C6, alignment otherwise intact. Loss of the normal lordosis as can be seen with positioning or muscl e spasm. Vertebral body heights are maintained. Loss of disc height and hydration at C5-6 and C6-7. T he cord signal is normal. Normal cervicomedullary junction. The following disc levels are specificall y discussed: C2-C3: The disc does not extend beyond the endplate margin. There is no uncovertebral joint osteoarth ritis. There is no facet joint osteoarthritis. There is no neural foraminal stenosis. There is no miguel tral canal stenosis. C3-C4: The disc does not extend beyond the endplate margin. There is no uncovertebral joint osteoarth ritis. There is no facet joint osteoarthritis. There is no neural foraminal stenosis. There is no miguel tral canal stenosis. C4-C5: The disc does not extend beyond the endplate margin. There is mild uncovertebral joint osteoar thritis. There is mild bilateral facet joint osteoarthritis. There is no neural foraminal stenosis. T here is no central canal stenosis. C5-C6: Mild diffuse bulge. There is mild bilateral uncovertebral joint osteoarthritis. There is mild bilateral facet joint osteoarthritis. There is no neural foraminal stenosis. There is no central quintin l stenosis. C6-C7: Mild diffuse bulge. There is mild bilateral uncovertebral joint osteoarthritis. There is mild bilateral facet joint osteoarthritis. There is no neural foraminal stenosis. There is no central quintin l stenosis. C7-T1: The disc does not extend beyond the endplate margin. There is mild bilateral uncovertebral katina nt osteoarthritis. There is mild bilateral facet joint osteoarthritis. There is no neural foraminal s tenosis. There is no central canal stenosis. IMPRESSION: 1. Mild degenerative disc disease and facet arthropathy, described in detail above. Reviewed, dictated and finalized at location K. IMPRESSION: 1. Mild degenerative disc disease and facet arthropathy, described in detail ab leonela.
== END 2021-10-31 09:39 | disposition home or self-care (01) ==
PROVIDERS: PCP Family Medicine; Visit Provider Family Medicine
DX: M50.30 Other cervical disc degeneration, unspecified cervical region (principal)
CPT/HCPCS: 72141

== ENCOUNTER 2022-05-19 16:17 | Emergency (ER) | payer OTHER, SELFPAY ==
--- NOTE | ~2022-05-19 | XR_ITS ---
EXAMINATION: XR chest 2V DATE: 05/19/2022 16:45 INDICATION: Cough. TECHNIQUE: Frontal and lateral views of the chest were obtained. COMPARISON: Chest 2 views 09/05/2017 FINDINGS: The chest demonstrates clear lungs without pneumonia, pleural effusion, or pneumothorax. Th e heart size is normal. There are surgical clips in the abdomen. IMPRESSION: 1. No acute cardiopulmonary disease. Reviewed, dictated and finalized at location A. 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
[2022-05-19 16:26] VITALS: BP 128/81; PULSE 91; RESP 20; TEMP 36.3; O2SAT 98
--- NOTE | 2022-05-19 17:03 | ED.URI ---
HPI - URI/Sore Throat General Chief Complaint: Upper Respiratory Infection Stated Complaint: wheezing,congestion Time Seen by Provider: 05/19/22 16:40 Source: patient Mode of arrival: ambulatory Limitations: no limitations History of Present Illness HPI Narrative: Patient presents today with a one-week history of cough, sore throat, congestion, body aches, shortness of breath with wheezing. States the sore throat and body aches have improved but the wheezing has worsened. Denies fever. She has been taking TheraFlu, Advil, Mucinex, and using an albuterol inhaler with some relief. States she does have a history of asthma, but usually only flares when she is sick. Smokes 1 pack per day. Related Data Allergies Allergy/AdvReac Type Severity Reaction Status Date / Time hydrocodone AdvReac Mild Nausea and Verified 05/19/22 16:24 Vomiting rabeprazole AdvReac Mild Rash Verified 05/19/22 16:24 Sulfa (Sulfonamide AdvReac Mild Rash Verified 05/19/22 16:24 Antibiotics) Review of Systems Review of Systems: CONSTITUTIONAL: Denies fever, chills, or sweats.+ body aches EYES: Denies visual changes, redness, or discharge. ENT: Denies otalgia.+ sore throat, congestion CARDIOVASCULAR: Denies chest pain, palpitations, or edema. RESPIRATORY: + cough, wheeze, shortness breast GASTROINTESTINAL: Denies abdominal pain, nausea, vomiting, or diarrhea. GENITOURINARY: Denies dysuria or hematuria. SKIN: Denies rash, itching, or wounds. MUSCULOSKELETAL: Denies back pain, joint pain, or myalgia. NEUROLOGIC: Denies headache, numbness, tingling, or weakness. PSYCH: Denies depression or anxiety. [facility] Past Medical History Medical History Allergies Anxiety Asthma Depression Gallbladder disorder Headache History of blood clots IBS (irritable bowel syndrome) Restless leg syndrome Umbilical hernia Varicose veins of both lower extremities Surgical History Surgical History History of cholecystectomy History of hernia surgery umbilical History of third molar tooth extraction History of varicose vein ligation and stripping Family History Family History Grandparent Heart disease Grandparent Diabetes mellitus Grandparent Hypertension Family history of heart disease in male family member before age 55 Diabetes mellitus Family history of blood dyscrasia Family history of arthritis Family history of chronic obstructive pulmonary disease Family history of Alzheimer's disease Family history of lung cancer, Onset Age: 80 Family history of dementia Family history of coronary artery disease Depression Heart disease Mother Family history of malignant neoplasm of breast in first degree relative Diabetes mellitus Family history of hypercholesterolemia Family history of malignant neoplasm of breast Depression Sibling Family history of hypercholesterolemia Social History Social History Smoking packs per day: 1 Smoking cigarettes per day: 20.0 Years smoked: 26 Smoking pack-years: 26.00 Smoking status: Current every day smoker Tobacco type: cigarettes Second hand tobacco smoke exposure: Yes Alcohol intake: current Drinks per week: 2 Alcohol use details: wine Substance use: never Substance use type: does not use Living arrangements: with family Occupation/Education: occupation 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 Please see nursing chart for further information. There is no re
[2022-05-19] MEDS: ALBUTEROL SULFATE NEB 2.5 MG/3 ML INH INHALATION (17:04)
[2022-05-19] MEDS: IPRATROPIUM BR 0.02% INH SOLN 0.5 MG/2.5 ML VIAL INHALATION (17:04)
[2022-05-19 17:05] VITALS: PULSE 91; RESP 20; O2SAT 98
[2022-05-19 17:20] VITALS: PULSE 96; RESP 20; O2SAT 98
== END 2022-05-19 17:34 | disposition home or self-care (01) ==
PROVIDERS: Emergency Provider Nurse Practitioner; PCP Family Medicine
DX: J40 Bronchitis, not specified as acute or chronic (principal); F17.210 Nicotine dependence, cigarettes, uncomplicated
CPT/HCPCS: 71046; 94640; 99213; G0463

== ENCOUNTER 2022-06-19 14:16 | Outpatient (CLI) | payer OTHER, SELFPAY ==
--- NOTE | ~2022-06-19 | MM_ITS ---
EXAMINATION: MM screening irene BI w theresa HISTORY: Screening mammogram TECHNIQUE: Craniocaudal and mediolateral oblique 3-D tomosynthesis images were obtained and synthetic 2-D images were generated. CAD analysis was submitted and interpreted. COMPARISON: 12/28/2020, 01/11/2019 bilateral screening mammogram examinations BREAST PARENCHYMAL COMPOSITION: There are scattered areas of fibroglandular density. FINDINGS: There is no evidence of suspicious mass, calcification, or architectural distortion to sugg est malignancy in either breast. There has been no suspicious interval change. IMPRESSION: 1. No mammographic evidence of malignancy. 2. Recommend routine screening mammography in one year. BI-RADS Category 1: Negative Reviewed, dictated and finalized at location A.
== END 2022-06-19 14:17 | disposition home or self-care (01) ==
LOC: ANHIMG 14:19
PROVIDERS: PCP Family Medicine; Visit Provider Obstetrics & Gynecology
DX: Z12.31 Encounter for screening mammogram for malignant neoplasm of breast (principal)
CPT/HCPCS: 77063; 77067

== ENCOUNTER 2022-08-12 16:22 | Emergency (ER) | payer OTHER, SELFPAY ==
--- NOTE | 2022-08-12 16:29 | ED.GENADULT ---
HPI - General Adult General Chief complaint: Urogenital-Female Stated complaint: Possible UTI Time Seen by Provider: 08/12/22 16:29 Source: patient Mode of arrival: ambulatory Limitations: no limitations History of Present Illness HPI narrative: 46-year-old female patient presents to the [facility] with complaints of urinary symptoms that started about 3 days ago. Patient states symptoms got worse today with increasing pain with urination, urgency and frequency and states that she notices some blood when she wipes. Denies any low back pain, abdominal pain, nausea, vomiting or diarrhea. Denies fevers, body aches or chills. Related Data Home Medications Medication Instructions Recorded Confirmed buspirone 15 mg tablet 15 mg PO PRN PRN Panic Attack(S) 08/12/22 08/12/22 Allergies Allergy/AdvReac Type Severity Reaction Status Date / Time hydrocodone AdvReac Intermediate Nausea and Verified 08/12/22 16:25 Vomiting rabeprazole AdvReac Mild Rash Verified 08/12/22 16:25 Sulfa (Sulfonamide AdvReac Mild Rash Verified 08/12/22 16:25 Antibiotics) Review of Systems Review of Systems: CONSTITUTIONAL: Denies fever, chills, or sweats. EYES: Denies visual changes, redness, or discharge. ENT: Denies rhinorrhea, congestion, sore throat, or otalgia. CARDIOVASCULAR: Denies chest pain, palpitations, or edema. RESPIRATORY: Denies cough or dyspnea. GASTROINTESTINAL: Denies abdominal pain, nausea, vomiting, or diarrhea. GENITOURINARY: Positive dysuria and hematuria. SKIN: Denies rash or itching. MUSCULOSKELETAL: Denies back pain, joint pain, or myalgia. NEUROLOGIC: Denies headache, numbness, or weakness. PSYCHIATRIC: Denies anxiety or depression. [facility] Past Medical History Medical History Allergies Anxiety Asthma Depression Gallbladder disorder Headache History of blood clots IBS (irritable bowel syndrome) Restless leg syndrome Umbilical hernia Varicose veins of both lower extremities Surgical History Surgical History History of cholecystectomy History of hernia surgery umbilical History of third molar tooth extraction History of varicose vein ligation and stripping Family History Family History Grandparent Heart disease Grandparent Diabetes mellitus Grandparent Hypertension Family history of heart disease in male family member before age 55 Diabetes mellitus Family history of blood dyscrasia Family history of arthritis Family history of chronic obstructive pulmonary disease Family history of Alzheimer's disease Family history of lung cancer, Onset Age: 80 Family history of dementia Family history of coronary artery disease Depression Heart disease Mother Family history of malignant neoplasm of breast in first degree relative Diabetes mellitus Family history of hypercholesterolemia Family history of malignant neoplasm of breast Depression Sibling Family history of hypercholesterolemia Social History Social History Smoking packs per day: 1 Smoking cigarettes per day: 20.0 Years smoked: 26 Smoking pack-years: 26.00 Smoking status: Current every day smoker Tobacco type: cigarettes Second hand tobacco smoke exposure: Yes Alcohol intake: current Drinks per week: 2 Alcohol use details: wine Substance use: never Substance use type: does not use Living arrangements: with family Occupation/Education: occupation 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 There is no relevant family history pertinent
[2022-08-12 16:30] VITALS: BP 127/67; PULSE 88; RESP 20; TEMP 36.6; O2SAT 99
== END 2022-08-12 16:45 | disposition home or self-care (01) ==
PROVIDERS: Emergency Provider Nurse Practitioner Family; PCP Family Medicine
DX: N30.01 Acute cystitis with hematuria (principal); F41.9 Anxiety disorder, unspecified; F32.A Depression, unspecified; F17.210 Nicotine dependence, cigarettes, uncomplicated
CPT/HCPCS: 81003; 87077; 87086; 87186; 99213; G0463

== ENCOUNTER 2023-07-13 09:45 | Emergency (ER) | payer BC, SELFPAY ==
[2023-07-13 10:00] VITALS: BP 141/82; PULSE 85; RESP 18; TEMP 36.1; O2SAT 100
--- NOTE | 2023-07-13 10:27 | ED.URI ---
HPI - URI/Sore Throat General Chief Complaint: Upper Respiratory Infection Stated Complaint: Sore Throat, Earache, Headache, Bodyache Time Seen by Provider: 07/13/23 10:21 Source: patient and RN notes reviewed Mode of arrival: ambulatory Limitations: no limitations History of Present Illness HPI Narrative: Patient presents today complaining of 4 day history of sore throat, body aches, headache, fatigue, ear pain, chills. Denies fever, cough, congestion, rhinorrhea. Currently rates her pain 5/10 and has been taking Chloraseptic spray, Tylenol, ibuprofen, and airborne with mild relief. Denies any known sick contacts. Related Data Home Medications Medication Instructions Recorded Confirmed buspirone 15 mg tablet 15 mg PO PRN PRN Panic Attack(S) 08/12/22 07/13/23 Allergies Allergy/AdvReac Type Severity Reaction Status Date / Time hydrocodone AdvReac Intermediate Nausea and Verified 07/13/23 10:02 Vomiting rabeprazole AdvReac Mild Rash Verified 07/13/23 10:02 Sulfa (Sulfonamide AdvReac Mild Rash Verified 07/13/23 10:02 Antibiotics) Review of Systems Review of Systems: CONSTITUTIONAL: Denies fever, or sweats.+ body aches, chills, fatigue EYES: Denies visual changes, redness, or discharge. ENT: Denies rhinorrhea, congestion.+ sore throat, ear pain CARDIOVASCULAR: Denies chest pain, palpitations, or edema. RESPIRATORY: Denies cough or dyspnea. GASTROINTESTINAL: Denies abdominal pain, nausea, vomiting, or diarrhea. GENITOURINARY: Denies dysuria or hematuria. SKIN: Denies rash, itching, or wounds. MUSCULOSKELETAL: Denies back pain, joint pain, or myalgia. NEUROLOGIC: Denies numbness, tingling, or weakness.+ headache PSYCH: Denies depression or anxiety. [facility] Past Medical History Medical History Allergies Anxiety Asthma Depression Gallbladder disorder Headache History of blood clots IBS (irritable bowel syndrome) Restless leg syndrome Umbilical hernia Varicose veins of both lower extremities Surgical History Surgical History History of cholecystectomy History of hernia surgery umbilical History of third molar tooth extraction History of varicose vein ligation and stripping Family History Family History Grandparent Heart disease Grandparent Diabetes mellitus Grandparent Hypertension Family history of heart disease in male family member before age 55 Diabetes mellitus Family history of blood dyscrasia Family history of arthritis Family history of chronic obstructive pulmonary disease Family history of Alzheimer's disease Family history of lung cancer, Onset Age: 80 Family history of dementia Family history of coronary artery disease Depression Heart disease Mother Family history of malignant neoplasm of breast in first degree relative Diabetes mellitus Family history of hypercholesterolemia Family history of malignant neoplasm of breast Depression Sibling Family history of hypercholesterolemia Social History Social History Smoking packs per day: 1 Smoking cigarettes per day: 20.0 Years smoked: 26 Smoking pack-years: 26.00 Smoking status: Current every day smoker Tobacco type: cigarettes Second hand tobacco smoke exposure: Yes Alcohol intake: current Drinks per week: 2 Alcohol use details: wine Substance use: never Substance use type: does not use Living arrangements: with family Occupation/Education: occupation 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
== END 2023-07-13 10:31 | disposition home or self-care (01) ==
PROVIDERS: Emergency Provider Nurse Practitioner; PCP Family Medicine
DX: J06.9 Acute upper respiratory infection, unspecified (principal); Z20.822 Contact with and (suspected) exposure to COVID-19; F17.210 Nicotine dependence, cigarettes, uncomplicated; J45.909 Unspecified asthma, uncomplicated; G25.81 Restless legs syndrome; F41.9 Anxiety disorder, unspecified; F32.A Depression, unspecified
CPT/HCPCS: 87081; 87426; 87804; 87880; 99213; G0463

== ENCOUNTER 2025-04-06 17:04 | Emergency (ER) | payer BC, SELFPAY ==
--- NOTE | ~2025-04-06 | XR_ITS ---
XR chest 2V HOSTORY: cough, sob, wheezing 8 days. Hx asthma COMPARISON:[ None] FINDINGS: Frontal and lateral views of the chest were obtained. The lungs are clear. The heart size is normal in size. Pulmonary vasculature is unremarkable. Osseous structures are intact. IMPRESSION: No acute lung findings.] [ ] Reviewed, dictated and finalized at location S. ETING PERFORMANCE ANALYST
--- OUTSIDE RECORDS SUMMARY | 2025-04-06 17:07 | XMS_ITS | Clinical Summary ---
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 Name Role Phone Cuauhtemoc Son MD Primary Care Provider [phone] Social History Tobacco Use Types Packs/Day Years Used Date Smoking Tobacco: Never Assessed Comments Unknown Sex and Gender Information Value Date Recorded Sex Assigned at Not on file Legal Sex Female 6:45 PM CDT Gender Identity Not on file Sexual Orientation Not on file Plan of Treatment Health Maintenance Due Date Last Done Comments Cervical Cancer Screening Pa p Smear (Age 30 to 64) Every 3 Years 1977 Colorectal Cancer Screening Colonoscopy (10 Years) 1977 Annual Physical 1980 DTaP, Tdap and Td Vaccines ( 1 - Tdap) 1996 Hepatitis B Vaccines (1 of 3 - 19+ 3-dose series) 1996 Cervical Cancer Screening Pa p with HPV Testing (Age 30 to 64) Every 5 Years 12/23/2007 Cervical Cancer Screening with HPV 12/23/2007 Mammogram Screening 2017 COVID-19 Vaccine ( - 2024-2 6 season) 2024 Influenza Adult (#1) 2025 Hepatitis C Completed 07/21/2019 Hepatitis A Vaccines Aged Out No long er eligible based on patient's age to complete this topic Meningococcal B Vaccine Aged Out No l onger eligible based on patient's age to complete this topic Meningococcal Vaccine Aged Out No marlena robert eligible based on patient's age to complete this topic Pneumococcal Vaccine: Pediat rics (0 to 5 Years) and At-Risk Patients (6 to 49 Years) Aged Out No longer eligi ble based on patient's age to complete this topic RSV Immunizations Under 20 Months Aged Out No longer eligible based on patient's age to complete this topic Procedures Procedure Name Priority Date/Time Associated Diagnosis Comments HEPATITIS C ANTIBODY Routine 07/21/2019 12:15 PM CDT Screening for STDs (sexually transmitted diseases) from Last 3 Months or Most Recently Relevant to Health Maintenance Results * HEPATITIS C ANTIBODY (07/21/2019 12:15 PM CDT) HEPATITIS C AB NON-REACTI VE NON-REACTI VE 07/21/2019 8:19 PM CDT [facility] 07/21/2019 12:1 5 PM CDT Lavonne Combs CNM LABORATORY Final Result [facility] [address] [place] [address], from Last 3 Months or Most Recently Relevant to Health Maintenance Insurance Care Teams Welder Setter Electron Beam Machine Relationship Specialty Start Date End Date Cuauhtemoc Son MD PCP - General 11/21/12
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
--- OUTSIDE RECORDS SUMMARY | 2025-04-06 17:08 | XMS_ITS | Clinical Summary ---
Author Organization [facility] Address [address] [place] [address] Care Team Providers Care Field Cane Scaler Name Role Phone Unavailable Primary Care Provider Unavailabl e Source Comments [facility],non-owned Affiliates and Associated Physician Practices is amultiple site organization consisting of ambulatory clinics and hospital sitesin [place], [place], [place] and [place]. This disclosure is being madepursuant to the Care Everywhere program and may not contain all information available regarding this patient. Last updated 17.Parascale Allergies Active Allergy Reactions Criticality Noted Date Comments Hydrocodone-Acetaminophen GI Discomfort 022 Sulfa Drugs Rash Medium 04/18/2019 Medications * This document contains information received from the source organization and may not represent a complete record from that organization. * Be aware that medications may not be up to date on this document. Alwaysverify current medications with the patient. gabapentin (Neurontin) 100 MG capsuleIndicati ons:Alcohol Use Disorder,Social Anxiety Disorder Take 1 (one) capsule by mouth at bedtime Active Active Problems Problem Noted Date Diagnosed Date Suicidal ideation 02/03/2022 Depression, unspecified depression type 02/04/20 22 Anxiety states 02/03/2022 Severe episode of recurrent major depressive disorder, without psychotic features 02/03/2022 Alcohol abuse 02/03/2022 Restless legs syndrome (RLS) 02/03/2022 Immunizations Immunization Administration Dates Next Due INFLUENZA VACCINE, QUADR. (F LUZONE; FLULAVAL; FLUARIX; AFLURIA QUADRIVALENT; 6MO+), 0.5 ML (IIV4) 02/05/2022(Deferred: Patient Refused) Social History Tobacco Use Types Packs/Day Years Used Date Smoking Tobacco: Every Day Cigarettes 1 15 Smokeless Tobacco: Current Tobacco Cessation:Ready to Q uit: No; Counseling Given: Yes Alcohol Use Standard Drinks/Week Comments Yes 43 (1 standard drink = 0.6 oz pu re alcohol) AUDIT-C Answer Date Recorded Q1: How often do you have a drink containing alcohol? 4 or more times a week 02/03/2022 Q2: How many drinks containi ng alcohol do you have on a typical day when you are drinking? 5 or 6 Q3: How often do you have si x or more drinks on one occasion? Daily or almost daily 02/03/2022 Hunger Vital Sign Answer Date Recorded Within the past 12 months, y ou worried that your food would run out before you got the money to buy more. Sometimes true Within the past 12 months, t he food you bought just didn't last and you didn't have money to get more. 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 Gender Identity Not on file Sexual Orientation Not on file Last Filed Vital Signs Vital Sign Reading Time Taken Comments Blood Pressure 131/48 02/06/2022 7:34 AM CDT Pulse 74 02/06/2022 7:34 AM CDT Temperature 36.8 C (98.3 F) 02/06/2022 7:34 AM CDT Respiratory Rate 16 02/06/2022 7:34 AM CDT Oxygen Saturation 100% 02/06/2022 7:34 AM CDT Inhaled Oxygen Concentration - - Weight 101.2 kg (223 lb) 02/03/2022 6:15 AM CDT Height 185.4 cm (6' 1) 02/03/2022 6:15 AM CDT Body Mass Index 29.42 02/03/2022 6:15 AM CDT Plan of Treatment Health Maintenance Due Date Last Done Comments COLOGUARD (AGES 45-75) - COL ON CA SCREENING 1977 COLON MONITORING 1977 COLONOSCOPY - COLON CA SCREENING 1977 CT COLONOGRAPHY - COLON CA SCREENING 1977 Colorectal Cancer Screening 1977 FIT - COLON CA SCREENING 1977 FLEX SIG - COLON CA SCREENING 1977 MAMMOGRAM 1977 HEPATITIS C SCREENING 12/18/1995 DTAP/TDAP/TD VACCINES (1 - Tdap) 1996 HEPATITIS B VACCINE (1 of 3 - 19+ 3-dose series) 1996 DEPRESSION SCREENING 04/09/2024 COVID-19 VACCINE (1 - 2024-2 6 season) 2024 INFLUENZA VACCINE (#1) 2024 SCREENING FOR DIABETES 02/05/2025 , 02/05/2022, 02/03/2022 LIPID TESTING 02/05/2027 02/05/2022 ZOSTER VACCINE (1 of 2) 12/23/2027 HIV SCREENING Completed 07/21/2019 HIB VACCINE Aged Out No longer eligi ble based on patient's age to complete this topic HPV VACCINE Aged Out No longer eligi ble based on patient's age to complete this topic MENINGOCOCCAL (Group B) VACCINE SHARED DECISION-MAKING Aged Out No longer eligible based on patient's age to complete this topic MENINGOCOCCAL GROUPS A/C/Y/W VACCINE Aged Out No longer eligible b ased on patient's age to complete this topic PNEUMOCOCCAL VACCINE Aged Out No long er eligible based on patient's age to complete this topic Procedures Procedure Name Priority Date/Time Associated Diagnosis Comments HEMOGLOBIN A1C Routine 02/05/2022 6:16 AM CDT LIPID PROFILE Routine 02/05/2022 6:16 AM CDT from Last 3 Months or Most Recently Relevant to Health Maintenance Results * HEMOGLOBIN A1C (02/05/2022 6:16 AM CDT) Hemoglobin A1c 4.9 4.2 - 5.6 % 02/05/2022 6:46 AM CDT [facility] Estimated Average Glucose 94 mg/dL 02/05/2022 6:46 AM CDT [facility] Blood BLOOD SPECIMEN / Unknown Lab Venipuncture / Unknown 02/05/2022 6:16 AM CDT 02/05/2022 6:15 AM CDT Narrative [facility] - 02/05/2022 6:46 AM CDT HbA1c Interpretation: Normal: < 5.7% Pre-diabetes: 5.7-6.4% Diabetes: Equal to or greater than 6.5% Test results diagnostic of diabetes should be repeated for confirmation. Treatment target values recommended by ADA and other clinical organizations should be used to evaluate metabolic control in patients. This test should not replace glucose testing for patients with Type 1 diabetes, pediatric patients, or women. Falsely low HbA1c results may be observed in patients with clinical conditions that shorten erythrocyte life span or decrease mean erythrocyte age such as the presence of unstable hemoglobin variants, elevated hemoglobin F level or other causes of hemolytic anemia. HbA1c may not accurately reflect glycemic control when clinical conditions that affect erythrocyte survival are present. Severe Iron deficiency anemia may yield falsely high results. Hemoglobin A1c assay should not be used to diagnose or monitor diabetes in patients with malignancy, recent blood transfusion, chronic kidney or liver disease. This method may yield falsely low results when hemoglobin (HbF) exceeds 5% in the specimen. The [place]s assay for the measurement of HbA1c is a National Glycohemoglobin Standardization Program (NGSP) certified method. Dariela Mott MACHINE TANK OPERATOR-[facility] - CHEMISTRY ORDERAB LES Final Result Performing Organization Address [facility]/State/[facility] Co de Phone Number [facility] [address] * (ABNORMAL) LIPID PROFILE (02/05/2022 6:16 AM CDT) [facility] Cholesterol 221(H) <200 mg/dL 02/05/2022 6:49 AM CDT [facility] Triglycerides 115 <150 mg/dL 02/05/2022 6:49 AM CDT [facility] HDL Cholesterol 57 >40 mg/dL 2 6:49 AM CDT [facility] Chol HDL Ratio 3.9 1.0 - 6.0 02/05/2022 6:49 AM CDT [facility] LDL Calculated 141(H) 65 - 130 mg/dL 02/05/2022 6:49 AM T [facility] VLDL Calculated 23 <=30 mg/dL 2 6:49 AM T [facility] Blood BLOOD SPECIMEN / Unknown Lab Venipuncture / Unknown 02/05/2022 6:16 AM CDT 02/05/2022 6:15 AM CDT Narrative [facility] - 02/05/2022 6:49 AM CDT Lipid Profile Comment: CHOLESTEROL LEVEL..................CLINICAL INTERPRETATION LESS THAN 200 MG/DL..............................DESIRABLE 200-239 MG/DL..............................BORDERLINE HIGH GREATER THAN 240 MG/DL................................HIGH LDL-CHOLESTEROL LEVEL..............CLINICAL INTERPRETATION LESS THAN 100 MG/DL................................OPTIMAL 100-129 MG/DL.................................NEAR OPTIMAL GREATER THAN 160 MG/DL...........................HIGH RISK HDL RISK LEVEL GREATER THEN 60 MG/DL............................DECREASED 40-60 MG/DL........................................AVERAGE LESS THAN 40 MG/DL...............................INCREASED TRIGLYCERIDE LEVEL..................CLINICAL INTERPRETATION LESS THAN 150 MG/DL...............................DESIRABLE 150-199 MG/DL...............................BORDERLINE HIGH 200-499 MG/DL..........................................HIGH GREATER THAN 500..................................VERY HIGH THE NATIONAL CHOLESTEROL EDUCATION PROGRAM HAS SET THE ABOVE GUIDELINES (REFERANCE VALUES) FOR CHOLESTEROL AND HDL. RISK ASSOCIATED WITH CHOLESTEROL/HDL RATIOS RISK....................MALE RATIO.............FEMALE RATIO 1/2 AVERAGE.................<3.4.......................<3.3 LOW RISK.................... 4.0 ...................... 3.8 AVERAGE..................... 5.0 ...................... 4.5 2X AVERAGE.................. 9.5 ...................... 7.0 3X AVERAGE...................>23........................>11 us Dariela Mott MACHINE TANK OPERATOR-[facility] LAB - CHEMISTRY ORDERAB LES Final Result [facility] [address] [place] [address], [facility] from Last 3 Months or Most Recently Relevant to Health Maintenance Insurance Advance Directives * Full Code (Latest Code Status on File) Date Activated Date Inactivated Comments 02/03/2022 5:58 AM 02/06/2022 1:50 PM
--- OUTSIDE RECORDS SUMMARY | 2025-04-06 17:08 | XMS_ITS | Continuity of Care Document ---
Author Organization [facility], [id number] [facility] 110_[address] Address [address] [place] [address] Assessment No assessment recorded. Plan of Treatment Reminders Order Date Submit Date Provider Last Modified By Organization Details Last Modified Time Details Appointments ANNUAL- EST 15 2025 11:30A M BISI GARCIA WHNP Not available Not available Not available Lab HPV DNA, high-risk - Reflex to genotypin g if HPV Detected 2024 025 [facility] ([facility]), [facility]0 [facility] [address] [address], [place], [address], 01/15/2025 14:06:02 bacterial vaginosis panel, vaginal 2024 025 [facility] ([facility]), [facility]0 [facility] [address], [place], [address], 01/15/2025 14:06:01 min sp igg+igm+i ga Ab, serum 2024 025 [facility] ([facility]), [facility]0 [facility] [address], [place], [address], 01/15/2025 14:06:01 HBsAg (hepatiti s B surface Ag), serum 2024 025 [facility] (Lab), [address], [place], [address], 01/13/2025 14:44:12 hepatitis C Ab, serum 2024 [facility] (Lab), [address], [place], [address], 01/13/2025 14:44:12 HIV 1+2 AB + HIV 1 p24 Ag, qualitati ve immunoass ay, serum 2024 [facility] (Lab), [address], [place], [address], 01/13/2025 14:44:12 syphilis Ab, igg [facility] [address] [address] [facility], [place], [address], 01/13/2025 14:55:20 CT + NG + TV, DNA, urine/swa b 2024 [facility]), [address] [facility] [address], [place], [address], 01/15/2025 14:06:02 pap, LB 2024 [facility]), [address] [facility] [address] , [address], [place], [address], 01/15/2025 14:06:00 Referral None recorded. Procedures None recorded. Surgeries None recorded. Imaging None recorded. Medication Orders None recorded. Patient TargetsNo targets recorded. Patient Instructions Encounter Date Encounter Id Patient Instructions Last Modified By Organization Details Last Modified Time 01/13/2025 [id number] - Follow up with the clinic if menstrual pain becomes more frequent or unmanageable. - Perform Kegel exercises to help with bladder leakage. - Schedule lab work at the [place] office for convenience. [id number] Not available 01/13/2025 12:57:52 During the visit , we discussed the importance of comprehensive STI screening due to the patient's recent exposure risk. We also addressed her menstrual pain management, advising the use of ibuprofen and Tylenol as needed. The patient was informed about the potential risks of hormonal control given her clotting disorder and smoking history. We agreed on conducting a Pap smear and HPV screening as part of her annual wellness examination. The patient should follow up with the clinic if her menstrual pain becomes more frequent or severe. She should also ensure to complete her lab work at the [place] office and await results through the patient portal. If any results are abnormal, the clinic will contact her directly. [email or web address] Not available 01/13/2025 12:57:53 Reason for Referral None Reported. Results Created Date Observation Date Name Description Value Unit Range Abnormal Flag Note LastModifiedBy Organization Detail LastModifiedTime 01/14/2001/15/2025 PAP TEST THIN PREP Pap test thin prep Negati ve for Intrae pithel ial Lesion or Malign deanne normal ACCES LOBO #: [id number] Sourc e: Cervi cristina/E ndoce rvica l LMP: 12-30 Date Taken : 01/13 Speci men Type: ThinP rep Vial Date Repor jet: 2024 Clini cristina Data: Last Pap: nl (11-08) Cytot ech: Candi Ring er, CT( CP) Date Repor jet: 2024 Speci men Adequ acy: Satis facto ry for evalu ation Endoc ervic al/tr ansfo rmati on zone compo nent prese nt Gener al Categ oriza tion: NEGAT GAMA FOR INTRA EPITH ELIAL LESIO N OR MALIG DESIRAE The follo wing tests have been order ed as reque sted and a separ ate repor t will be issue d: Camila da Panel , Bacte rial Vagin osis+ with Lacto Profi ling, Chlam ydia, Gonor rhoea e, and Trich omona s This speci men has been debra zed by the ThinP rep Imagi ng Syste m, an inter activ e compu ter syste m which johanne ts the lab in the scree mary of ThinP rep Pap Test slide s. Follo wing imagi ng, the slide was revie wed by a Cytot echno logis t and/o r Patho logis t. Cervi cristina cytol ogy is a scree mary test prima rily for squam ous cance rs and precu rsors and has assoc iated false -nega tive and false -posi tive resul ts. New techn ologi es such as liqui d-bas ed prepa ratio ns may decre ase but will not elimi tee all false -nega tive resul ts. Regul ar sampl ing and follo w-up of unexp daniel d clini cristina signs and sympt oms are recom lacey d to minim ize false negat gama resul ts. D N A A S S A Y S R E P O R T TEST NAME RESUL TS ----- ---- ----- -- HPV High Risk Scree n (TMA) ThinP rep Vial The human papil lomav irus (HPV) High Risk Scree n is an FDA-a pprov ed in-vi tro ampli fied nucle ic acid test for the quali tativ e detec tion of E6/E7 viral mRNA. Resul ts shoul d be corre lated with patie nt prese ntati on, histo ry, cervi cristina cytol ogy and other clini cristina and labor atory findi ngs. See https ://[employer] [address]/s ites/ defcandis lt/fi les/2 018-0 3/AW- 88914 _002_ 01.pd f for kian er infor katey n. Test perfo rmed by [facility] d/b/a Path[facility]oup, [address], [place] [address] , Sherry Rodriguez ra, DO, Labor atory [facility], [place]# [id number] HPV High Risk *HPV NOT DETEC JET (TYPE S 16, 18, 31, 33, 35, 39, 45, 51, 52, 56, 58, 59, 66, 68) *HPV: The human papil lomav irus (HPV) High Risk Rodrigo gonzáles is an FDA-a pprov ed in-vi tro ampli fied nucle ic acid test for the quali tativ e detec tion of E6/E7 viral mRNA. [facility] mary cooper be corre lated with antonia painting prese ntati on, histo ry, cervi cristina cytol ogy and other clini cristina and labor atory findi ngs. See https ://[employer]/s ites/ defau lt/fi les/2 018-0 3/AW- [id number] _002_ 01.pd f for furgiselle er infor katey n. Test perfo rmed by [facility] d/b/a [facility], [address], [place] [address] , Sherry Rodriguez ra, DO, Labor ator [facility], CLIA# [id number] End of t Techn ical servi payton provi ded by [facility], d/b/a [employer], [address] [place] [address] Diandra yost MD, [facility]. Case revie wed and diagn osis rende red at [facility], d/b/a [facility], [address] [place] [address] Diandra yost MD, [facility]. CONFI DENTI AL Not Available [facility]) [facility] [place] [address], [place], [address], 01/15/2025 14:06:00 01/14/2001/15/2025 BACTE RIAL VAGIN OSIS+ WITH LACTO PROFI LING top line result Abnorm al abnormal Not Available [facility] ([facility]) [facility] [place] [address], [place], [address], 01/15/2025 14:06:01 01/14/20 25 01/15/2025 BACTE RIAL VAGIN OSIS+ WITH LACTO PROFI LING interpretati on SEE COMMEN T The organ isms detec jet in this speci men are indic ative of abnor mal micro dami . Detec tion of organ isms that are assoc iated with bacte rial vagin osis (BV) and the absen ce of lacto bacil rey speci es sugge sts the prese nce of disea se. BV assoc iated organ isms inclu de Gardn erell a vagin lory, Atopo bium vagin ae, Mycop lasma homin is, Ureap lasma ureal yticu m, Megas phaer a 1 & 2, BVAB2 and Mobil uncus speci es. Becau se these organ isms can be const ituen ts of the sandra l vagin al micro dami , their prese nce is not defin itive proof of BV. These resul ts are meant to aid in the diagn osis and manag ement of BV and shoul d be inter prete d in the swati xt of other test resul ts and clini cristina findi ngs. Not Available [facility] ([facility]) [facility]0 [facility] [address], [place], [address], 01/15/2025 14:06:01 01/14/20 25 01/15/2025 BACTE RIAL VAGIN OSIS+ WITH LACTO PROFI LING atopobium vaginae Normal normal Not Available [facility] ([facility]) [address] [facility] [address], [place], [address], 01/15/2025 14:06:01 01/14/20 25 01/15/2025 BACTE RIAL VAGIN OSIS+ WITH LACTO PROFI LING gardnerella vaginalis Elevat ed abnormal Not Available [facility] ([facility]) [facility]0 [facility] [address], [place], [address], 01/15/2025 14:06:01 01/14/20 25 01/15/2025 BACTE RIAL VAGIN OSIS+ WITH LACTO PROFI LING bvab2 Elevat ed abnormal Not Available [facility] ([facility]) [address] [place] [address] [address], [place], [address], 01/15/2025 14:06:01 01/14/20 25 01/15/2025 BACTE RIAL VAGIN OSIS+ WITH LACTO PROFI LING megasphaera 1 Elevat ed abnormal Not Available [facility] ([facility]) [address] [place] [address] [address], [place], [address], 01/15/2025 14:06:01 01/14/20 25 01/15/2025 BACTE RIAL VAGIN OSIS+ WITH LACTO PROFI LING megaspherea 2 Normal normal Not Available [facility]) [address] [place] [address] [address], [place], [address], 01/15/2025 14:06:01 01/14/2001/15/2025 BACTE RIAL VAGIN OSIS+ WITH LACTO PROFI LING lactobacillu s crispatus Not Detect ed normal Not Available [facility] ([facility]) [address] [place] [address] [address], [place], [address], 01/15/2025 14:06:01 01/14/20 25 01/15/2025 BACTE RIAL VAGIN OSIS+ WITH LACTO PROFI LING lactobacillu s gasseri Not Detect ed normal Not Available [facility] ([facility]) [address] [place] [address] [address], [place], [address], 01/15/2025 14:06:01 01/14/20 25 01/15/2025 BACTE RIAL VAGIN OSIS+ WITH LACTO PROFI LING lactobacillu s iners ql Normal normal Not Available [facility] ([facility]) [address] [place] [address] [address], [place], [address], 01/15/2025 14:06:01 01/14/2001/15/2025 BACTE RIAL VAGIN OSIS+ WITH LACTO PROFI LING lactobacillu s jensenii ql Not Detect ed normal Not Available [facility] ([facility]) [address] [place] [address] [address], [place], [address], 01/15/2025 14:06:01 01/14/2001/15/2025 BACTE RIAL VAGIN OSIS+ WITH LACTO PROFI LING mobiluncus mulieris Not Detect ed normal Not Available [facility] ([facility]) [address] [place] [address] [address], [place], [address], 01/15/2025 14:06:01 01/14/2001/15/2025 BACTE RIAL VAGIN OSIS+ WITH LACTO PROFI LING mobiluncus curtisii Not Detect ed normal Not Available [facility] ([facility]) [address] [place] [address] [address], [place], [address], 01/15/2025 14:06:01 01/14/2001/15/2025 BACTE RIAL VAGIN OSIS+ WITH LACTO PROFI LING mycoplasma hominis Not Detect ed normal Not Available [facility] ([facility]) [address] [place] [address] [address], [place], [address], 01/15/2025 14:06:01 01/14/2001/15/2025 BACTE RIAL VAGIN OSIS+ WITH LACTO PROFI LING ureaplasma urealyticum Detect ed abnormal Not Available [facility] ([facility]) [address] [place] [address] [address], [place], [address], 01/15/2025 14:06:01 01/14/2031 0101/15/2025 CAMILA DA PANEL min albicans Not Detect ed normal Genom ic DNA is isola jet from patie nt speci mens by stand amilcar labor atory techn iques and debra zed using custo m OpenA rray plate s, perfo rmed on the Quant [employer] 12K Flex Real Time PCR syste m. A posit gama resul t is provi ded for patho genic bacte rial speci es based on detec tion of ampli ficat ion produ cts. Sandra l vagin al dami resul ts of Sandra l or Butler jet are deter mined by calcu latin g the ratio of the organ ism to the total bacte tiki prese nt in the speci men, and ger ring that ratio to a PathG roup patie nt popul ation . Overa ll resul ts of Sandra l, Borde rline and Abnor mal are deter mined using a proba bilit y model which was devel oped by an exten sive debra sis and integ ratio n of clini cristina thres holds for marke r organ isms on a large set of sympt omati c & asymp tomat ic speci mens. Patie nt popul ation s with diffe rent demog raphi cs from the PathG roup model popul ation may have diffe rent indic ator organ isms with diffe rent relat gama ratio s, which would influ ence the final resul ts. Resul ts shoul d be inter prete d in the swati xt of all clini cristina and labor atory findi ngs. The test was devel oped and its perfo rmanc e marcell cteri stics deter mined by [facility], [facility] d/b/a PathG rouyumiko. It has not been clear ed or appro rodo by the U.S. Food and Drug Admin istra tion. The FDA has deter mined that such clear ance or appro lorenzo is not neces quang. Perti nent refer ence inter vals are avail able from the labor atory on reque st. Test( s) perfo rmed by [facility], [facility] d/b/a [facility]G [facility]oup, [address], [place] [address] , Sherry Rodriguez ra, DO, Labor atory [facility], CLIA# [id number] Not Available [facility] ([facility]) [address], [place], [address], 01/15/2025 14:06:01 01/14/20 25 01/15/2025 CAMILA DA PANEL min glabrata Not Detect ed normal Genom ic DNA is isola jet from patie nt speci mens by stand amilcar labor atory techn iques and debra zed using custo m OpenA rray plate s, perfo rmed on the [employer] Flex Real Time PCR syste m. A posit gama resul t is provi ded for patho genic bacte rial speci es based on detec tion of ampli ficat ion produ cts. Sandra l vagin al dami resul ts of Sandra l or Butler jet are deter mined by calcu latin g the ratio of the organ ism to the total bacte tiki prese nt in the speci men, and ger ring that ratio to a PathG roup patie nt popul ation . Overa ll resul ts of Sandra l, Borde rline and Abnor mal are deter mined using a proba bilit y model which was devel oped by an exten sive debra sis and integ ratio n of clini cristina thres holds for marke r organ isms on a large set of sympt omati c & asymp tomat ic speci mens. Patie nt popul ation s with diffe rent demog raphi cs from the PathG roup model popul ation may have diffe rent indic ator organ isms with diffe rent relat gaam ratio s, which would influ ence the final resul ts. Resul ts shoul d be inter prete d in the swati xt of all clini cristina and labor atory findi ngs. The test was devel oped and its perfo rmanc e marcell cteri stics deter mined by [facility] d/b/a PathG [facility]oup. It has not been clear ed or appro rodo by the U.S. Food and Drug Admin istra tion. The FDA has deter mined that such clear ance or appro lorenzo is not neces quang. Perti negarima refer ence inter vals are avail able from the labor atory on reque st. Test( s) perfo rmed by [facility] d/b/a [facility]G [facility]oup, [address], [place] [address] , Sherry Rodriguez ra, DO, Labor atory [place] [place], CLIA# [id number] Not Available [facility] ([facility]) [address], [place], [address], 01/15/2025 14:06:01 01/14/20 25 01/15/2025 CAMILA DA PANEL min krusei Not Detect ed normal Genom ic DNA is isola jet from patie nt speci mens by stand amilcar labor atory techn iques and debra zed using custo m OpenA rray plate s, perfo rmed on the Quant [employer] o 12K Flex Real Time PCR syste m. A posit gama resul t is provi ded for patho genic bacte rial speci es based on detec tion of ampli ficat ion produ cts. Sandra l vagin al dami resul ts of Sandra l or Butler jet are deter mined by calcu latin g the ratio of the organ ism to the total bacte tiki prese nt in the speci men, and ger ring that ratio to a PathG roup patie nt popul ation . Overa ll resul ts of Sandra l, Borde rline and Abnor mal are deter mined using a proba bilit y model which was devel oped by an exten sive debra sis and integ ratio n of clini cristina thres holds for marke r organ isms on a large set of sympt omati c & asymp tomat ic speci mens. Patie nt popul ation s with diffe rent demog raphi cs from the PathG roup model popul ation may have diffe rent indic ator organ isms with diffe rent relat gama ratio s, which would influ ence the final resul ts. Resul ts shoul d be inter prete d in the swati xt of all clini cristina and labor atory findi ngs. The test was devel oped and its perfo rmanc e marcell cteri stics deter mined by [employer] [facility], [facility] d/b/a PathG rou. It has not been clear ed or appro rodo by the U.S. Food and Drug Admin istra tion. The FDA has deter mined that such clear ance or appro lorenzo is not neces quang. Perti nent refer ence inter vals are avail able from the [facility] atory on reque st. Test( s) perfo rmed by [facility] d/b/a PathG rou, [address], [place] [address] , Sherry Rodriguez ra, DO, Labor atory [place] [place], CLIA# [id number] Not Available [facility]) [address], [place], [address], 01/15/2025 14:06:01 01/14/20 25 01/15/2025 CAMILA DA PANEL min parapsilosis Not Detect ed normal Genom ic DNA is isola jet from patie nt speci mens by stand amilcar labor atory techn iques and debra zed using custo m OpenA rray plate s, perfo rmed on the Quant Studi o 12K Flex Real Time PCR syste m. A posit gama resul t is provi ded for patho genic bacte rial speci es based on detec tion of ampli ficat ion produ cts. Sandra l vagin al dami resul ts of Sandra l or Butler jet are deter mined by calcu latin g the ratio of the organ ism to the total bacte tiki prese nt in the speci men, and ger ring that ratio to a PathG roup patie nt popul ation . Overa ll resul ts of Sandra l, Borde rline and Abnor mal are deter mined using a proba bilit y model which was devel oped by an exten sive debra sis and integ ratio n of clini cristina thres holds for marke r organ isms on a large set of sympt omati c & asymp tomat ic speci mens. Patie nt popul ation s with diffe rent demog raphi cs from the PathG roup model popul ation may have diffe rent indic ator organ isms with diffe rent relat gama ratio s, which would influ ence the final resul ts. Resul ts shoul d be inter prete d in the swati xt of all clini cristina and labor atory findi ngs. The test was devel oped and its perfo rmanc e marcell cteri stics deter mined by [facility], [facility] d/b/a Path rou. It has not been clear ed or appro rodo by the U.S. Food and Drug Admin istra tion. The FDA has deter mined that such clear ance or appro lorenzo is not neces quang. Perti nent refer ence inter vals are avail able from the labor atory on reque st. Test( s) perfo rmed by [facility] d/b/a Path rou, [address], [place] [address] , Sherry Rodriguez ra, DO, Labor atory [facility], [place]# [id number] Not Available [facility] [address], [place], [address], 01/15/2025 14:06:01 01/14/20 25 01/15/2025 CAMILA DA PANEL min tropicalis Not Detect ed normal Genom ic DNA is isola jet from patie nt speci mens by stand amilcar labor atory techn iques and debra zed using custo m OpenA rray plate s, perfo rmed on the Concept3Di o 12K Flex Real Time PCR syste m. A posit gama resul t is provi ded for patho genic bacte rial speci es based on detec tion of ampli ficat ion produ cts. Sandra l vagin al dami resul ts of Sandra l or Butler jet are deter mined by calcu latin g the ratio of the organ ism to the total bacte tiki prese nt in the speci men, and ger ring that ratio to a PathG roup patie nt popul ation . Overa ll resul ts of Sandra l, Borde rline and Abnor mal are deter mined using a proba bilit y model which was devel oped by an exten sive debra sis and integ ratio n of clini cristina thres holds for marke r organ isms on a large set of sympt omati c & asymp tomat ic speci mens. Patie nt popul ation s with diffe rent demog raphi cs from the PathG roup model popul ation may have diffe rent indic ator organ isms with diffe rent relat gama ratio s, which would influ ence the final resul ts. Resul ts shoul d be inter prete d in the swati xt of all clini cristina and labor atory findi ngs. The test was devel oped and its perfo rmanc e marcell cteri stics deter mined by [facility] [employer] [employer], [facility] d/b/a PathG roup. It has not been clear ed or appro rodo by the U.S. Food and Drug Admin istra tion. The FDA has deter mined that such clear ance or appro lorenzo is not neces quang. Perti nent refer ence inter vals are avail able from the [facility] atory on reque st. Test( s) perfo rmed by [facility] d/b/a PathG roup, [address], [place] [address] , Sherry Rodriguez ra, DO, Labor atory [place]ire [facility], CLIA# [id number] Not Available [facility]) [address], [place], [address], 01/15/2025 14:06:01 01/14/20 25 01/14/2025 CHLAM YDIA, GONOR RHOEA E, AND TRICH OMONA S trichomonas vaginalis, aptima (panther) NOT DETECT ED normal DNA testi ng perfo rmed by [employer] jet Ampli ficat ion (TMA) . Resul ts shoul d be inter prete d in conju nctio n with patie nt histo ry and clini cristina prese ntati on. This assay is highl y accur ate, but rare false posit gama and negat gama resul ts may occur . Posit gama resul ts in low preva lence popul ation s may requi re re-ev aluat ion. A negat gama resul t does not precl ude a possi ble infec tion due to a speci men inade quacy or sampl ing error . Test perfo rmed by [facility] d/b/a PathWilbert meredith, [address] [facility] [address], [place] [address] , Sherry Rodriguez ra, DO, Labor atory [place] [facility], [place]# [id number] Not Available [facility] ([facility]) [address] [facility] [address], [place], [address], 01/15/2025 14:06:02 01/14/20 25 01/14/2025 CHLAM YDIA, GONOR RHOEA E, AND TRICH OMONA S neisseria gonorrhoeae, aptima NOT DETECT ED normal DNA testi ng perfo rmed by Trans cript ion Media jet Ampli ficat ion (TMA) . Resul ts shoul d be inter prete d in conju nctio n with patie nt histo ry and clini cristina prese ntati on. This assay is highl y accur ate, but rare false posit gama and negat gama resul ts may occur . Posit gama resul ts in low preva lence popul ation s may requi re re-ev aluat ion. A negat gama resul t does not precl ude a possi ble infec tion due to a speci men inade quacy or sampl ing error . Test perfo rmed by [facility] d/b/a [facility], [address], [place] [address] , Sherry Rodriguez ra, DO, Labor atory Dire [facility], CLIA# [id number] Not Available [facility] ([facility]) [address] [facility] [address], [place], [address], 01/15/2025 14:06:02 01/14/20 25 01/14/2025 CHLAM YDIA, GONOR RHOEA E, AND TRICH OMONA S chlamydia trachomatis, aptima NOT DETECT ED normal DNA testi ng perfo rmed by Trans cript ion Media jet Ampli ficat ion (TMA) . Resul ts shoul d be inter prete d in conju nctio n with patie nt histo ry and clini cristina prese ntati on. This assay is highl y accur ate, but rare false posit gama and negat gama resul ts may occur . Posit gama resul ts in low preva lence popul ation s may requi re re-ev aluat ion. A negat gama resul t does not precl ude a possi ble infec tion due to a speci men inade quacy or sampl ing error . Test perfo rmed by [facility] d/b/a [facility], [address], [place] [address] , Sherry Rodriguez ra, , Labor atory Dire tor, CLIA# [id number] Not Available [facility] ([facility]) [address] [facility] [address], [place], [address], 01/15/2025 14:06:02 01/14/20 25 01/14/2025 HPV HIGH RISK SCREE N (TMA) HPV high risk NOT DETECT ED normal The human papil lomav irus (HPV) High Risk Scree n is an FDA-a pprov ed in-vi tro ampli fied nucle ic acid test for the quali tativ e detec tion of E6/E7 viral mRNA. Adeline paiz lated with antonia painting prese ntati on, histo ry, cervi cristina cytol ogy and other clini cristina and labor atory findi ngs. See https ://Promosome/s ites/ defau lt/fi les/2 018-0 3/AW- 12657 _002_ 01.pd f for furth er infor katey n. Test perfo rmed by [facility] d/b/a [facility], [address], [place] [address] , Sherry Rodriguez ra, DO, [facility], CLIA# [id number] Not Available [facility] ([facility]) [address], [place], [address], 01/15/2025 14:06:02 03/02/20 25 03/02/2025 ultra sound image s RAD adollpollard Your In[employer]Ky[employer] se [employer] [id number] 03/03/2025 15:08:08 03/03/20 25 03/02/2025 US, trans vagin al No observ ation record ed. [email or web address] Not Available 02/08 09:29:53 Result Notes None recorded. 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; Problem Code Type: ICD-9; Startdate : 'Left Eye'; Not Available [facility] 12:20:06 Insomnia 828943035 Active Insomnia, Problem Code: 780.52; Problem Code Type: ICD-9; Not Available [facility] 5 12:20:07 Asthma 652285584 Active Asthma, Problem Code: 493.90; Problem Code Type: ICD-9; Not Available [facility] 5 12:20:07 Anxiety state 289103249 Active Anxiety, Problem Code: 300.00; Problem Code Type: ICD-9; Not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
--- OUTSIDE RECORDS SUMMARY | 2025-04-06 17:08 | XMS_ITS | Clinical Summary ---
Author Organization [facility] Office Center Address [address] [place] [address] Care Team Providers Care Building Supervisor Name Role Phone Dora Nelson Primary Care Provider + Allergies Active Allergy Reactions Criticality Noted Date Comments Sulfa (Sulfonamide Antibiotics) Rash Medium 02/07 Hydrocodone-Acetaminophen Vomiting Low 02/24/2021 Medications albuterol (PROAIR RESPICLICK) 90 mcg/actuation inhaler Inhale 2 puffs every 6 (six) hours as needed for wheezing Active calcium carbonate-vitamin D3 1,500 mg (600mg elemental) -800 unit per tablet Take 1 tablet by mouth daily Active aspirin 81 mg enteric coated tablet Take 1 tablet (81 mg total) by mouth daily Active ibuprofen (ADVIL,MOTRIN) 400 mg tablet Take 1 tablet (400 mg total) by mouth every 6 (six) hours as needed for pain Active acetaminophen (TYLENOL) 500 mg tablet Take 2 tablets (1,000 mg total) by mouth every 6 (six) hours as needed for pain Active busPIRone (BUSPAR) 15 mg tablet Take 1 tablet (15 mg total) by mouth 3 (three) times a day as needed (anxiety) 270 tablet 3 11/07/19 25 Active rOPINIRole (REQUIP) 2 mg tabletIndications: Restless legs syndrome (RLS) Take 1 tablet (2 mg total) by mouth nightly 90 tablet 3 11/07/19 25 Active ibuprofen 200 mg tab/cap Take 1 tablet/caps ule (200 mg total) by mouth every 6 (six) hours as needed for pain Active rivaroxaban (XARELTO) 10 mg tabletIndications: VTE Prophylaxis Take 1 tablet (10 mg total) by mouth daily 45 tablet 11/18/19 25 Active rosuvastatin (CRESTOR) 10 mg tabletIndications: Hyperlipidemia, unspecified hyperlipidemia type Take 1 tablet by mouth once daily 30 tablet 03/12/20 25 Active rosuvastatin (CRESTOR) 10 mg tabletIndications: Hyperlipidemia, unspecified hyperlipidemia type Take 1 tablet by mouth once daily 30 tablet 02/07/20 25 025 Discontinued Active Problems Problem Noted Date Diagnosed Date Hypocalcemia 05/06/2024 Vitamin D deficiency 05/06/2024 Assessment & Plan (11/06/2024 6:07 PM CDT): Repeat labs ordered Orders: Vitamin D 25 hydroxy; Future Mixed hyperlipidemia 05/06/2024 Assessment & Plan (11/06/2024 6:07 PM CDT): Chronic, stable condition. Continue current medication regimen: diet/exercise Labs ordered Orders: CBC with auto differential; Future Comprehensive metabolic panel; Future Lipid panel; Future Thyroid Function Trigg; Future Obesity, Class II, BMI 35-39.9 05/06/2024 Mallet finger of right hand 03/05/2024 Injury of finger of right hand 03/05/2024 Mallet finger, right 03/05/2024 Assessment & Plan (11/06/2024 6:07 PM CDT): Right mallet finger with persistent pain and limited motion Persistent pain and limited motion 7 months post-surgery, - Advise follow-up with the surgeon to discuss persistent pain and limited motion. - Consider contacting the surgeon's office for further evaluation and management. 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 Encouraged compression socks as needed. BUCKY (obstructive sleep apnea) 10/26/2023 Assessment & Plan (10/26/2023 10:43 AM CDT): In the past, however most recent study showed this to be resolved. No longer using CPAP. Referral to sleep Medicine Mild intermittent asthma without complication Assessment & Plan (10/26/2023 10:43 AM CDT): Diagnosed in the past? Smoking, recurrent bronchitis. Does not currently use inhalers Prevnar 20 given in office Borderline personality disorder 10/26/2023 Cigarette nicotine dependence without complicati on 10/26/2023 Assessment & Plan (10/26/2023 10:47 AM CDT): Not interested in quitting at this time. Understands risk Restless legs 02/03/2022 Assessment & Plan (10/26/2023 10:42 AM CDT): Chronic, stable. Continue Requip at night. Varicose veins of bilateral lower extremities with other complications 02/25/2021 Assessment & Plan (10/26/2023 10:43 AM CDT): Chronic, stable. Encouraged compression as needed Assessment & Plan (02/25/2021 3:16 PM STREAM CONTROL OFFICER): Impression: Patient is status post left greater saphenous vein and stab phlebectomies to left lower extremities [place] [address] Ramirez. She had stab phlebectomies to the right lower extremity at an outside facility. She reports a superficial thrombophlebitis that was diagnosed on February 04 2021 at [facility] after having pain to her right medial thigh. Plan: Will obtain studies from [facility]. Continue comfort measures for superficial thrombophlebitis. Patient to follow-up as needed. Resolved Problems Problem Noted Date Diagnosed Date Resolved Date BMI 34.0-34.9,adult 12/12/2023 05/06/19 25 Moderate persistent asthma with exacerbation 3 10/26/2023 Severe episode of recurrent major depressive disorder, without psychotic features 02/03/2022 Encounters Date Type Department Care Team Description 02/22/2025 3:17 PM STREAM CONTROL OFFICER - 02/22/2025 4:48 PM STREAM CONTROL OFFICER Emergency [facility] Emergency Department [address] [place] [address] Adalberto Tay PA Dysfunctional uterine bleeding (Primary Dx) Discharge Disposition: Discharge to home or self care from Last 3 Months Immunizations Immunization Administration Dates Next Due Influenza, Quadrivalent, Spl it, Preservative Free, Intramuscular 04/06/2022,01/24/2018 Influenza, Trivalent, High D ose, Split, Preservative Free, Intramuscular 01/07/2017 Influenza, Trivalent, Preser vative Free, Intramuscular 02/04/2024,01/16/2017,01/25/2016 Influenza, Unspecified 01/24/2023(Deferr ed: Patient decision),01/07/2022,01/25/2021 MMR 09/24/1991 Pneumococcal Conjugate Pcv20 10/26/2023 Td, adsorbed 09/24/1991 Tdap 10/26/2023 Surgical History Surgery Date Site/Laterality Comments VARICOSE VEIN SURGERY 04/09/2009 - 04/08/2010 Right VARICOSE VEIN SURGERY 04/09/2002 - 04/08/2003 Right CHOLECYSTECTOMY 04/09/2001 - 04/08/2002 HERNIA REPAIR 04/09/2006 - 04/08/2007 COLONOSCOPY FINGER SURGERY 03/20/2024 Right right pinky Medical History Medical History Date Comments Asthma Anxiety Personality disorder in adult (HCC) Severe episode of recurrent major depressive disorder, without psychotic features (HCC) 02/03/2022 Sleep apnea Borderline personality disorder (HCC) 10/26/2023 Phlebitis DVT (deep venous thrombosis) 201 8 Obesity Allergic rhinitis Pneumonia Irritable bowel syndrome Restless leg syndrome Family History Medical History Relation Name Comments No Known Problems Father No Known Problems Father's Brother No Known Problems Father's Sister Cancer Maternal Grandfather lung ca ncer Clotting disorder Maternal Grandmother Breast cancer Mother Again at age 7 0 Cancer Mother Clotting disorder Mother Diabetes Mother No Known Problems Mother's Brother No Known Problems Mother's Sister Dementia Paternal Grandfather Hypertension Paternal Grandfather COPD Paternal Grandmother Clotting disorder Sister 1 Hyperlipidemia Sister 1 Thyroid disease Sister 2 No Known Problems Son Relation Name Status Comments Father Alive Father's Brother Father's Sister Maternal Grandfather Maternal Grandmother Mother Alive Mother's Brother Mother's Sister Paternal Grandfather Paternal Grandmother Sister 1 Alive Sister 2 Alive Son Social History Tobacco Use Types Packs/Day Years Used Date Smoking Tobacco: Every Day Cigarettes 05 05 Started: 1998 Smokeless Tobacco: Never Tobacco Cessation:Ready to Q uit: Not Asked; Counseling Given: Not Answered Alcohol Use Standard Drinks/Week Comments Yes 1 (1 standard drink = 0.6 oz pur e alcohol) PHQ-2 Answer Date Recorded PHQ-2 Total Score (If total score is 3 or more points, staff should administer the PHQ-9) 0 11/17/2024 AUDIT-C Answer Date Recorded Q1: How often do you have a drink containing alc ohol? 2-4 times a month 11/17/2024 Average Number of Drinks 1 or 2 025 Frequency of Binge Drinking Never 11/07 Personal Safety Answer Date Recorded Have you ever been in or are you currently in a harmful physical or emotional relationship or is someone making you feel afraid or unsafe? Denies 02/22/2025 Comments No Sex and Gender Information Value Date Recorded Sex Assigned at Not on file Legal Sex Female 7:08 PM STREAM CONTROL OFFICER Gender Identity Not on file Sexual Orientation Not on file Obstetrics History Para Term AB IAB SAB Ectopic Multiple Livin g Live Births 2 1 1 1 1 Date Outcome GA Total Labor Labor/2nd/3rd Weight Sex Type Anes PTL Selin A1 A5 Name Clin 2000 Term 39w 0d 2.778 kg (6 lb 2 oz) M Vagina l Epidur al N Livin g Complications:None Delivery Location:This [facility] it Last Filed Vital Signs Vital Sign Reading Time Taken Comments Blood Pressure 133/83 02/22/2025 4:45 PM STREAM CONTROL OFFICER Pulse 72 02/22/2025 4:45 PM STREAM CONTROL OFFICER Temperature 36.8 C (98.3 F) 02/22/2025 2:55 PM STREAM CONTROL OFFICER Respiratory Rate 16 02/22/2025 4:45 PM STREAM CONTROL OFFICER Oxygen Saturation 100% 02/22/2025 4:45 PM STREAM CONTROL OFFICER Inhaled Oxygen Concentration - - Weight 118.3 kg (260 lb 12.9 oz) 02/22/2025 2:55 PM STREAM CONTROL OFFICER Height 182.9 cm (6') 11/17/2024 12:22 PM CDT Body Mass Index 35.37 11/17/2024 12:22 PM CDT Plan of Treatment Health Maintenance Due Date Last Done Comments Regular Well Visit/Exam 18-64 12/23/1995 Cervical Cancer Screening 12/02/2024 12/02/2021 Covid-19 Vaccine (3 - 2024-2 6 season) 2024 09/11/2020, 08/14/2020 Influenza Vaccine (#1) 2024 , 04/06/2022, 01/07/2022, Additional history exists Breast Cancer Screening-Mammogram 05/14/2025 025, 06/19/2022 Depression Screening 11/17/2025 11/17/2024, 11/06/2024, 05/06/2024, Additional history exists Colon Cancer Screening-DNA Stool 11/10/2026 11/11/19 24 DTaP/Tdap/Td Vaccine (3 - Td or Tdap) 10/25/2033 10/26/2023, 10/07/2014, 09/24/1991 Pneumococcal vaccine <65 Completed 10/26/2023 Hepatitis B Screening Completed 11/06/2024 Hepatitis C Screening Completed 11/06/2024 Medical Devices Implanted Type Area Conveyor Attendant Device Identifier Shelf Expiration Date Model / Serial / Lot Mesh Mesh Umbilical [employer] Donn .035in 9in 1 [place] [employer] Wire Fixation [id number] - [id number] Implanted:Qty: 1 on 03/20/2024 by Marbin Altamirano MD at [facility] Right: [employer] [id number] / / Explanted Type Area Conveyor Attendant Device Identifier Shelf Expiration Date Model / Serial / Lot [employer] Donn .035in 9in 1 [place] Sm[employer] Wire Fixation [id number] - [id number] Explanted:Qty: 1 on 03/20/2024 by Marbin Altamirano MD at [facility] Wire Right: [employer] [id number] S / / Procedures Procedure Name Priority Date/Time Associated Diagnosis Comments POCT HCG, URINE Routine 02/22/2025 3:07 PM STREAM CONTROL OFFICER URINALYSIS, MICROSCOPIC ONLY STAT 02/22/2025 3:06 PM STREAM CONTROL OFFICER URINALYSIS AND REFLEX TO MICROSCOPIC AND CULTURE STAT 02/22/2025 3:06 PM STREAM CONTROL OFFICER EGFR STAT 02/22/2025 3:05 PM STREAM CONTROL OFFICER DIFFERENTIAL AUTO STAT 02/22/2025 3:0 5 PM STREAM CONTROL OFFICER LIPASE STAT 02/22/2025 3:05 PM STREAM CONTROL OFFICER COMPREHENSIVE METABOLIC PANEL STAT 02/22/2025 3:05 PM STREAM CONTROL OFFICER CBC WITH AUTO DIFFERENTIAL STAT 02/22/2025 3:05 PM STREAM CONTROL OFFICER HEPATITIS C ANTIBODY Routine 11/06/2024 10:21 AM CDT Need for hepatitis C screening test SCREENING MAMMOGRAM BILATERAL W ARMANI Schedule Routine, Read Routine (OP Routine) 05/14/2024 11:59 AM STREAM CONTROL OFFICER Encounter for screening mammogram for malignant neoplasm of breast STOOL DNA COLOGUARD Routine 11/11/2023 2:00 PM CDT Colon cancer screening HM PAP SMEAR WITH HPV Routine 12/02/2021 from Last 3 Months or Most Recently Relevant to Health Maintenance Results * POCT hCG, urine (02/22/2025 3:07 PM STREAM CONTROL OFFICER) HCG, ur, POC Negative Negative Comment:Testing performed by : [facility], [address] [place] [address]., [address] Urine 02/22/2025 3:07 PM STREAM CONTROL OFFICER 02/22/2025 3:07 PM STREAM CONTROL OFFICER us Notinfile Unknown LAB POCT ORDERABLES - DEVICE F inal Result ADRI [address] [facility] Department [place] [address] * (ABNORMAL) Urinalysis reflex to microscopic and culture Urine (02/22/2025 3:06 PM STREAM CONTROL OFFICER) Color, ur Straw Yellow Comment:Testing performed by : [address] [address] Clarity, ur Clear Clear ADRI Comment:Testing performed by : [address], [place]., [address] Specific gravity, ur 1.015 1.003 - 1.030 ADRI Comment:Testing performed by : [address], [place]., [address] pH, urine 6.5 ADRI Comment: Interpretive Data U rine pH is affected by diet, medications, systemic acid-base disturbances, and renal tubular function. pH may affect urinary stone formation. For example, urine pH below 6.0 may help reduce the tendency for calcium phosphate stones and pH greater than 6.0 may reduce the tendency for uric acid stone formation. Source: [facility] [employer] Current Interpretive Data was last revised on 2017 Testing performed by: [address] [address] Protein, ur ql Negative Negative ADRI Comment:Testing performed by : [address] [address] Glucose, ur ql Negative Negative ADRI Comment:Testing performed by : [address] [address] Ketones, ur Negative Negative ADRI Comment:Testing performed by : [address] [address] Bilirubin, ur Negative Negative ADRI Comment:Testing performed by : [address] [address] Blood, ur 3+(A) Negative ADRI Comment:Testing performed by : [address] [address] Urobilinogen, ur <2.0 <2.0 mg/dL ADRI Comment:Testing performed by : [address], [place]., [address] Nitrite, ur Negative Negative ADRI Comment:Testing performed by : [address] [address] Leukocyte esterase, ur Negative Negative ADRI Comment:Testing performed by : [address] [address] UA reflex comment Reflex to microscopic UA will be performed. ADRI Comment:Testing performed by : [address] [address] Urine 02/22/2025 3:06 PM STREAM CONTROL OFFICER 02/22/2025 3:10 PM STREAM CONTROL OFFICER Kelvin Aaron DO LAB MICROBIOLOGY - GENERAL ORDERABLES Final Result Performing Organization Address [facility] Co de Phone Number ANDRE[address] [employer] [place] [address] * (ABNORMAL) Urinalysis, microscopic only (02/22/2025 3:06 PM STREAM CONTROL OFFICER) WBC, ur 6-10(A) 0 - 5 /HPF Comment:Testing performed by : [address] [address] RBC, ur >50(A) 0 - 2 /HPF ADRI Comment:Testing performed by : [address] [address] Epithelial cells, squamous, ur 11-20(A) 0 - 5 /HPF ADRI Comment:Testing performed by : [address] [address] Mucous, ur Present(A) ADRI Comment:Testing performed by : [address] [address] Culture Reflex Comment Reflex conditions for urine culture (WBC >10) not met. ADRI Comment:Testing performed by : [address] [address] Urine 02/22/2025 3:06 PM STREAM CONTROL OFFICER 02/22/2025 3:10 PM STREAM CONTROL OFFICER Kelvin Aaron DO LAB URINE ORDERABLES Final Result Performing Organization Address City/[facility]/ZIP Co de Phone Number [facility] [address] [facility] [employer] [place] [address] * eGFR (02/22/2025 3:05 PM STREAM CONTROL OFFICER) Pathologist [facility] eGFR >90 >=60 mL/min/1. 73 m2 Comment: Interpretive Data Reference Interval Normal >/= 90 mL/min/1.73m2 Mildly decreased* 60 - 89 mL/min/1.73m2 Mildly to moderately decreased 45 - 59 mL/min/1.73m2 Moderately to severely decreased 30 - 44 mL/min/1.73m2 Severely decreased 15 - 29 mL/min/1.73m2 Kidney Failure < 15 mL/min/1.73m2 *Relative to young adult level Estimated glomerular filtration rate is determined by the 2020 CKD-EPI equation recommended by the National Kidney Foundation (A Unifying Approach to GFR Estimation: Recommendations of the NKF-ASK Task Force on Reassessing the Inclusion of Race in Diagnosing Kidney Disease, JASN 2020). The CKD-EPI equation should not be used for patients with unstable renal function and has not been validated in children and those over 70. Current interpretive data was last reviewed 2021. Testing performed by: [address] [address] Blood 02/22/2025 3:05 PM STREAM CONTROL OFFICER 02/22/2025 3:10 PM STREAM CONTROL OFFICER us Kelvin Aaron DO LAB BLOOD ORDERABLES Final Result [facility] [address] [facility] Department [place] [address] * Differential, auto (02/22/2025 3:05 PM STREAM CONTROL OFFICER) [facility] Neutrophil abs 3.37 1.50 - 6.50 K/cumm Comment:Testing performed by : [address] [address] Imm gran abs 0.02 0.00 - 0.10 K/cumm ADRI SHOOK Comment:Testing performed by : [address] [address] Lymphocyte abs 2.39 0.80 - 3.30 K/cumm ADRI Comment:Testing performed by : [address] [address] Monocyte abs 0.37 0.20 - 0.80 K/cumm ADRI Comment:Testing performed by : [address] [address] Eosinophil abs 0.01 0.00 - 0.50 K/cumm ADRI Comment:Testing performed by : [address] [address] Basophil abs 0.04 0.00 - 0.10 K/cumm ADRI Comment:Testing performed by : [address] [address] Neutrophil pct 54.4 % ADRI Comment: Interpretive Data Percent cell count reference ranges are not reported, since discordance with absolute values may lead to misinterpretation of CBC data. Current Interpretive Data was last revised on 2017. Testing performed by: [address] [address] Imm gran pct 0.3 % [facility] Comment: Interpretive Data Percent cell count reference ranges are not reported, since discordance with absolute values may lead to misinterpretation of CBC data. Current Interpretive Data was last revised on 2017. Testing performed by: [address] [address] Lymphocyte pct 38.5 % [facility] Comment: Interpretive Data Percent cell count reference ranges are not reported, since discordance with absolute values may lead to misinterpretation of CBC data. Current Interpretive Data was last revised on 2017. Testing performed by: [address] [address] Monocyte pct 6.0 % [facility] Comment: Interpretive Data Percent cell count reference ranges are not reported, since discordance with absolute values may lead to misinterpretation of CBC data. Current Interpretive Data was last revised on 2017. Testing performed by: [address] [address] Eosinophil pct 0.2 % [facility] Comment: Interpretive Data Percent cell count reference ranges are not reported, since discordance with absolute values may lead to misinterpretation of CBC data. Current Interpretive Data was last revised on 2017. Testing performed by: [address] [address] Basophil pct 0.6 % ADRI SHOOK Comment: Interpretive Data Percent cell count reference ranges are not reported, since discordance with absolute values may lead to misinterpretation of CBC data. Current Interpretive Data was last revised on 2017. Testing performed by: [address] [address] Blood 02/22/2025 3:0 5 PM STREAM CONTROL OFFICER 02/22/2025 3:10 PM STREAM CONTROL OFFICER us Kelvin Aaron DO LAB BLOOD ORDERABLES Final Result ADRI SHOOK [facility] Department [place] [address] * CBC with auto differential (02/22/2025 3:05 PM STREAM CONTROL OFFICER) WBC 6.20 3.80 - 9.90 K/cumm Comment:Testing performed by : [address] [address] Hgb 14.2 11.9 - 15.5 g/dL ADRI SHOOK Comment:Testing performed by : [address] [address] Hct 43.1 35.6 - 45.5 % ADRI SHOOK Comment:Testing performed by : [address] [address] Plt 243 150 - 400 K/cumm ADRI SHOOK Comment:Testing performed by : [address] [address] MPV 9.9 9.1 - 12.3 fL ADRI SHOOK Comment:Testing performed by : [address] [address] RBC 4.75 3.90 - 5.20 M/cumm ADRI SHOOK Comment:Testing performed by : [address] [address] MCV 90.7 81.3 - 96.4 fL ADRI SHOOK Comment:Testing performed by : [address] [address] MCH 29.9 27.1 - 33.3 pg ADRI SHOOK Comment:Testing performed by : [address] [address] MCHC 32.9 32.3 - 35.7 g/dL ADRI SHOOK Comment:Testing performed by : [address], [address] RDW CV 13.0 11.1 - 14.9 % ADRI SHOOK Comment:Testing performed by : [address], [address] RDW SD 43.2 35.7 - 48.1 fL ADRI SHOOK Comment:Testing performed by : [address], [address] NRBC abs 0.00 0.00 - 0.01 K/cumm ADRI SHOOK Comment:Testing performed by : [address], [address] Blood Venous blood specimen / Unknown 02/22/2025 3:05 PM STREAM CONTROL OFFICER 02/22/2025 3:10 PM STREAM CONTROL OFFICER Kelvin Aaron DO LAB BLOOD ORDERABLES Final Result Performing Organization Address City/[facility]/ZIP Co de Phone Number [address] [place] [employer] [place] [address] * Lipase (02/22/2025 3:05 PM STREAM CONTROL OFFICER) Lipase 49 10 - 99 Units/L Comment:Testing performed by : [address], [address] Blood Venous blood specimen / Unknown 02/22/2025 3:05 PM STREAM CONTROL OFFICER 02/22/2025 3:10 PM STREAM CONTROL OFFICER Kelvin Aaron DO LAB BLOOD ORDERABLES Final Result Performing Organization Address City/[facility]/ZIP Co de Phone Number [address] [place] [employer] [address] * Comprehensive metabolic panel (02/22/2025 3:05 PM STREAM CONTROL OFFICER) Sodium 137 135 - 145 mmol/L Comment:Testing performed by : [address] [address] Potassium, pl 3.6 3.3 - 4.9 mmol/L ADRI Comment:Testing performed by : [address], [place]., [address] Chloride 104 97 - 110 mmol/L ADRI Comment:Testing performed by : [address], [place]., [address] CO2 23 22 - 32 mmol/L ADRI Comment:Testing performed by : [address] [address] Anion gap 10 2 - 15 mmol/L ADRI Comment:Testing performed by : [address] [address] BUN 9 6 - 25 mg/dL ADRI Comment:Testing performed by : [address] [address] Creatinine 0.80 0.60 - 1.10 mg/dL ADRI Comment:Testing performed by : [address] [address] Glucose 99 70 - 199 mg/dL [facility] Comment: Interpretive Data Fasting glucose >/= 126 mg/dl is diagnostic for diabetes. Fasting is defined as no caloric intake for at least 8 hours. Fasting glucose between 100 mg/dl to 125 mg/dl is diagnostic of prediabetes. In a patient with classic symptoms of hyperglycemia or hyperglycemic crisis, a random glucose >/= 200 mg/dl is diagnostic for diabetes. In the absence of unequivocal hyperglycemia, results should be confirmed by repeat testing. The classification and Diagnosis of Diabetes Diabetes Care 2021; 46: S19-S40. Current interpretive data was last revised 2022. Testing performed by: [address] [address] Calcium 9.0 8.5 - 10.3 mg/dL ADRI Comment:Testing performed by : [address] [address] Bilirubin, total 0.5 0.1 - 1.2 mg/dL ADRI Comment:Testing performed by : [facility], [address] [place] [address]., [address] Protein, pl 6.7 6.5 - 8.5 g/dL ADRI Comment:Testing performed by : [facility], [address] [place] [address], [place]., [address] Albumin 4.2 3.5 - 5.0 g/dL ADRI Comment:Testing performed by : [address] [address] Alk phos 49 40 - 130 Units/L ADRI Comment:Testing performed by : [address], [place]., [address] ALT 12 7 - 45 Units/L ADRI Comment:Testing performed by : [address] [address] AST 14 10 - 45 Units/L ADRI Comment:Testing performed by : [address] [address] Blood 02/22/2025 3:05 PM STREAM CONTROL OFFICER 02/22/2025 3:10 PM STREAM CONTROL OFFICER Kelvin Aaron DO LAB BLOOD ORDERABLES Final Result ADRI [address] [facility] Department [place] [address] * Hepatitis C antibody Blood (11/06/2024 10:21 AM CDT) Hep C Ab Nonreactive Nonreactive Comment: Antibodies to HCV not detected. Does NOT exclude the possibility of recent exposure to HCV. Current interpretive data was last revised on 21 Interpretive Data Nonreactive: Antibodies to HCV not detected. Does NOT exclude the possibility of recent exposure to HCV. Equivocal: Equivocal for HCV antibodies. Supplemental molecular testing will be automatically performed to determine infection status in accordance with current CDC screening recommendations. Reactive: Positive for HCV antibodies. This may represent current or past HCV infection. Supplemental molecular testing will be automatically performed to determine current infection status in accordance with current CDC screening recommendations. Interpretive data was last revised on 2019. Blood 11/06/2024 10:2 1 AM CDT 11/06/2024 12:22 PM CDT us Dora [facility] LAB MICROBIOLOGY - GENER AL ORDERABLES Final Result [facility] [address] [facility] Department [place] [address] * Screening Mammogram Bilateral W Armani (05/14/2024 11:59 AM STREAM CONTROL OFFICER) Anatomical Region Laterality Modality Breast Bilateral Mammography Impressions 05/16/2024 4:02 PM STREAM CONTROL OFFICER BI-RADS ATLAS category (overall): 1 - Negative There is no mammographic evidence of malignancy. A 1 year screening mammogram is recommended. The patient has been or will be contacted. We recommend annual screening mammography for women at average risk of breast cancer beginning at age 40, based on guidelines of the [employer] (ACR Practice Parameter for the Performance of Screening and Diagnostic Mammography) and [employer]. For women with and elevated risk of breast cancer, please refer to the ACR Practice Parameter for specific screening recommendations. The patient will be entered into a reminder system with a target due date of 1 year for her next screening exam. 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 2D digital mammographic views, as well as 3D digital tomosynthesis were performed in the CC and MLO projections. This study was resulted using Computer-Aided Detection (CAD). CLINICAL: Encounter for screening mammogram for malignant neoplasm of breast. No relevant medical history has been documented for this patient. History of breast cancer in Mother. COMPARISONS: 06/19/2022 Breast Imaging Screening Outside Reference 12/28/2020 Breast Imaging Screening Outside Reference 01/11/2019 Breast Imaging Screening Outside Reference BREAST TISSUE: There are scattered areas of fibroglandular density. FINDINGS: No suspicious masses, suspicious calcifications, or other suspicious findings are seen within either breast. There has been no suspicious change. us Dora CASAS IMG MAMMO PROCEDURES Fin al Result * Stool DNA - Cologuard (11/11/2023 2:00 PM CDT) Stool DNA - Cologuard Negative Negative [facility] (CLIA #:[id number]) Comment: NEGATIVE TEST RESULT. A negative Cologuard result indicates a low likelihood that a colorectal cancer (CRC) or advanced adenoma (adenomatous polyps with more advanced pre-malignant features) is present. The chance that a person with a negative Cologuard test has a colorectal cancer is less than 1 in 1500 (negative predictive value >99.9%) or has an advanced adenoma is less than 5.3% (negative predictive value 94.7%). These data are based on a prospective cross-sectional study of 10,000 individuals at average risk for colorectal cancer who were screened with both Cologuard and colonoscopy. (Kenna Lombardo al, N Engl J Med 2014;370(14):5046-7410) The normal value (reference range) for this assay is negative. COLOGUARD RE-SCREENING RECOMMENDATION: Periodic colorectal cancer screening is an important part of preventive healthcare for asymptomatic individuals at average risk for colorectal cancer. Following a negative Cologuard result, the [employer] [employer] and U.S. Multi-Society Task Force screening guidelines recommend a Cologuard re-screening interval of 3 years. References: [employer] [employer] Guideline for Colorectal Cancer Screening: https://www.cancer.org/cancer/hjijm-qejpau-ecewtz/snyfpjkwa-xenbwnecs-aeuamfw/ac s-rec ommendations.html.; Moses DK, Lupe CR, Bindu LarryK, Colorectal Cancer Screening: Recommendations for Physicians and Patients from the U.S. Multi-Society Task Force on Colorectal Cancer Screening , Am J Gastroenterology 2017; 112:2441-2717. TEST DESCRIPTION: Composite algorithmic analysis of stool DNA-biomarkers with hemoglobin immunoassay. Quantitative values of individual biomarkers are not reportable and are not associated with individual biomarker result reference ranges. Cologuard is intended for colorectal cancer screening of adults of either sex, 45 years or older, who are at average-risk for colorectal cancer (CRC). Cologuard has been approved for use by the U.S. FDA. The performance of Cologuard was established in a cross sectional study of average-risk adults aged 50-84. Cologuard performance in patients ages 45 to 49 years was estimated by sub-group analysis of near-age groups. Colonoscopies performed for a positive result may find as the most clinically significant lesion: colorectal cancer [4.0%], advanced adenoma (including sessile serrated polyps greater than or equal to 1cm diameter) [20%] or non- advanced adenoma [31%]; or no colorectal neoplasia [45%]. These estimates are derived from a prospective cross-sectional screening study of 10,000 individuals at average risk for colorectal cancer who were screened with both Cologuard and colonoscopy. (Kenna Rodríguez et al, N Engl J Med 2014;370(14):7784-1665.) Cologuard may produce a false negative or false positive result (no colorectal cancer or precancerous polyp present at colonoscopy follow up). A negative Cologuard test result does not guarantee the absence of CRC or advanced adenoma (pre-cancer). The current Cologuard screening interval is every 3 years. ([employer] and U.S. Multi-Society Task Force). Cologuard performance data in a 10,000 patient pivotal study using colonoscopy as the reference method can be accessed at the following location: www.[employer].Digital Vault/results. Additional description of the Cologuard test process, warnings and precautions can be found at www.[email or web address].[email or web address]. Stool 11/11/2023 2:00 PM CDT 11/13/2023 8:11 AM CDT Dora [facility] BODY FLUIDS AND STOO LS ORDERABLES Final Result [facility] (CLIA #:[id number]) [place] [address] * HM PAP SMEAR WITH HPV (12/02/2021) Scribed Pap Smear w/HPV Normal Historical Provider HEALTH MAINTENANCE Final Result from Last 3 Months or Most Recently Relevant to Health Maintenance Insurance [place] [employer] [place] Care Teams Building Supervisor Relationship Specialty Start Date End Date Dora Nelson PA PCP - General Family Medicine 10/26/23
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
--- OUTSIDE RECORDS SUMMARY | 2025-04-06 17:08 | XMS_ITS | Data Portability ---
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 LastModified by Organization Details LastModified Time None Recorded Advance Directives Directive N: Payers Insurance Date Sequence Insurance Name Policy Number Policy Parr Covered Member ID Parr Member ID Guarantor Name 03/21/2025 1 [place] [id number] Agueda Bowie [id number] Agueda Bowie Notes Date Note Type [...] - 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 Denies need for antidepressant medication. BISI CARBAJAL [address] [facility] [address], [place], [address], [facility] 01/13/2025 14:50:41 02/23/2025 text/html ROS as noted in the HPI Pt started spotting 02/08 and increased to a heavy menses. Changing a pad every 2 hours. Light headed and dizzy. Went [facility] and states they only did labs. States bloodwork was negative and urine was negative for blood. Pt states just got in a new relationship and first intercourse was a little after the spotting started. Denies any chance of . Reports cramping pretty bad yesterday, but not as bad today. ER did not do US. Pulled up labs and urine from [facility] and labs normal and urine HCG negative. BISI CARBAJAL [address] [facility] [address], [place], [address], [facility] 02/23/2025 14:41:29 03/24/2025 text/html ROS as noted in the HPI Pt presents for EMB d/t thickened endo stripe on TVUS and AUB. Pt is a smoker and BMI 35. BISI Hannah CARBAJAL [address] [facility] [address], [place], [address], [facility] 03/25/2025 14:51:04 OBGyn Episode Ob Episode Information Episode Created Date Number of Fetuses Patient Bloodtype Patient rh Status Prepregnancy Weight lbs Domestic Partner Domestic Partner Phone Father Name Cryptologic Technician Technical Status 08/23/19 25 1 CLOSED Fetus Data First Name Last Name Admitted to NICU Weight (g) Sex Living Outcome Pediatric Complications Fetus ID Race Codes Race Delivery Type M [id number] Vaginal Kermit Calculation Initial Kermit Date Initial Exam Date Initial Exam Provider Initial Ultrasound Date Last Menstrual Period Date Ultra Sound Weeks Gestation 0 Eighteen To Twenty Week Kermit Update Ultra Sound Date Fundal Height At Umbil Quickening Date Ultra Sound Latest Weeks Gestation Final Kermit Confirmed By Final Kermit Confirmed Date Final Kermit Date Ultra Sound Latest Days Gestation 0 0 Menstrual History Last Menstrual Date Menses Monthly On Bcp Conception Prior Menses Frequency Hcg Plus Date Menarche Onset Age Delivery Information Delivery Date Delivery Type Labor Anesthesia Weeks Gestation Incision Type Labor Labor Length Hrs Delivered By Post Complications Tubal Sterilization Discharge Date Comments 1 [facility] [address] [place] [address] in [place] , Patient had gallstone s, trouble gaining weight fetus_1_w eight_lbs : '6# 2oz'; Discharge Information Feeding Method Contraceptive Method Maternal HG B and HCT Levels Ob Episode Information Episode Created Date Number of Fetuses Patient Bloodtype Patient rh Status Prepregnancy Weight lbs Domestic Partner Domestic Partner Phone Father Name Cryptologic Technician Technical Status 01/14/20 25 1 CLOSED Fetus Data First Name Last Name Admitted to NICU Weight (g) Sex Living Outcome Pediatric Complications Fetus ID Race Codes Race Delivery Type , Spontane ous [id number] Kermit Calculation Initial Kermit Date Initial Exam Date Initial Exam Provider Initial Ultrasound Date Last Menstrual Period Date Ultra Sound Weeks Gestation 0 Eighteen To Twenty Week Kermit Update Ultra Sound Date Fundal Height At Umbil Quickening Date Ultra Sound Latest Weeks Gestation Final Kermit Confirmed By Final Kermit Confirmed Date Final Kermit Date Ultra Sound Latest Days Gestation 0 0 Menstrual History Last Menstrual Date Menses Monthly On Bcp Conception Prior Menses Frequency Hcg Plus Date Menarche Onset Age Delivery Information Delivery Date Delivery Type Labor Anesthesia Weeks Gestation Incision Type Labor Labor Length Hrs Delivered By Post Complications Tubal Sterilization Discharge Date Comments 3 Discharge Information Feeding Method Contraceptive Method Maternal HG B and HCT Levels
--- OUTSIDE RECORDS SUMMARY | 2025-04-06 17:08 | XMS_ITS | Clinical Summary ---
Author Organization [facility] lin Address [address] [place] [address] Care Team Providers Care [employer] Name Role Phone Unavailable Primary Care Provider Unavailabl e Social History Tobacco Use Types Packs/Day Years Used Date Smoking Tobacco: Never Assessed Comments Unknown Sex and Gender Information Value Date Recorded Sex Assigned at Not on file Legal Sex Female 1:47 PM EST Gender Identity Not on file Sexual Orientation Not on file Plan of Treatment Not on file Medical Devices Not on file
[2025-04-06 17:18] VITALS: BP 136/88; PULSE 80; RESP 20; TEMP 36.2; O2SAT 98
[2025-04-06 18:37] VITALS: PULSE 80; RESP 20; O2SAT 98
[2025-04-06] MEDS: ALBUTEROL SULFATE NEB 2.5 MG/3 ML INH INHALATION (18:41)
[2025-04-06] MEDS: IPRATROPIUM BR 0.02% INH SOLN 0.5 MG/2.5 ML VIAL INHALATION (18:42)
--- NOTE | 2025-04-06 18:55 | ED_ITS ---
HPI - URI/Sore Throat General Chief Complaint: Upper Respiratory Infection Stated Complaint: Upper Respiratory Infection Time Seen by Provider: 04/06/25 18:20 Source: patient and RN notes reviewed Mode of arrival: ambulatory Limitations: no limitations History of Present Illness HPI Narrative: 49-year-old female patient with history of illness induced asthma presents today complaining of an 8 day history of sore throat, body aches, nasal congestion, fever up to 99, cough, rhinorrhea, occasional wheezing and shortness of breath. Her respiratory symptoms are worse at night. She has been using DayQuil, NyQuil, Mucinex, and albuterol nebulizer treatments. These provide some mild relief. Smokes 1 pack a day. Related Data Home Medications ?Medication ?Instructions ?Recorded ?Confirmed ?Last Taken ?Type buspirone 15 mg tablet 15 mg PO PRN PRN Panic Attac k(S) 08/12/22 04/06/25 Unknown History rosuvastatin 10 mg tablet mg 04/06/25 Unknown History Allergies Allergy/AdvReac Type Severity Reaction Status Date / Time hydrocodone Allergy Intermediate Nausea and Verified 04/06/25 17:26 Vomiting rabeprazole Allergy Mild Rash Verified 04/06/25 17:26 Sulfa (Sulfonamide Allergy Mild Rash Verified 04/06/25 17:26 Antibiotics) [facility] Past Medical History Medical History IBS (irritable bowel syndrome) Headache Gallbladder disorder History of blood clots Allergies Umbilical hernia Varicose veins of both lower extremities Depression Anxiety Restless leg syndrome Asthma Surgical History Surgical History History of third molar tooth extraction History of varicose vein ligation and stripping History of hernia surgery umbilical History of cholecystectomy Family History Family History Grandparent Heart disease Grandparent Diabetes mellitus Grandparent Hypertension Family history of heart disease in male family member before age 55 Diabetes mellitus Family history of blood dyscrasia Family history of arthritis Family history of chronic obstructive pulmonary disease Family history of Alzheimer's disease Family history of lung cancer, Onset Age: 80 Family history of dementia Family history of coronary artery disease Depression Heart disease Mother Family history of malignant neoplasm of breast in first degree relative Diabetes mellitus Family history of hypercholesterolemia Family history of malignant neoplasm of breast Depression Sibling Family history of hypercholesterolemia Social History Social History Smoking packs per day: 1 Smoking cigarettes per day: 20.0 Years smoked: 26 Smoking pack-years: 26.00 Smoking status: Current every day smoker Tobacco type: cigarettes Second hand tobacco smoke exposure: Yes Alcohol intake: current Drinks per week: 2 Alcohol use details: wine Substance use: never Substance use type: does not use Living arrangements: with family Occupation/Education: occupation 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 Please see nursing chart for further information. There is no relevant family history pertinent to the presenting complaint Exam Narrative: GENERAL: Ill-appearing, well-nourished, and in no acute distress. HEAD: Normocephalic, atraumatic. EYES: EOMI. No redness or drainage. Conjunctivae normal. ENT: Mucous membranes pink and moist. Nares congested with rhinorrhea. TMs normal bilaterally. Throat normal. Uvula midline. NECK: Normal AROM. Supple. No lymphadenopathy. CHEST: No respiratory distress. Moderate inspiratory and expiratory wheezing throughout. HEART: Regular rate and rhythm. No murmur appreciated. EXTREMITIES: Normal range of motion. No edema. SKIN: Warm, dry, no rash. Capillary refill normal. Normal skin turgor. NEURO: No focal deficits. Alert and oriented x3. Gait steady. PSYCH: Normal affect. No signs of depression or anxiety. Course Course Level of Care: Express Care Visit Vital Signs Vital signs: Vital Signs Temperature 97.2 F L 04/06/25 17:18 Pulse Rate 80 04/06/25 17:18 Respiratory Rate 20 04/06/25 17:18 Blood Pressure 136/88 04/06/25 17:18 Pulse Oximetry 98 04/06/25 17:18 Oxygen Delivery Room Air 04/06/25 17:18 Temperature 97.2 F L 04/06/25 17:18 Pulse Rate 92 04/06/25 19:05 Respiratory Rate 20 04/06/25 19:05 Blood Pressure 136/88 04/06/25 17:18 Pulse Oximetry 98 04/06/25 19:05 Oxygen Delivery Room Air 04/06/25 17:18 Reviewed MDM MDM Narrative Medical decision making narrative: 49-year-old female patient with history of illness induced asthma presents today complaining of an 8 day history of sore throat, body aches, nasal congestion, fever up to 99, cough, rhinorrhea, occasional wheezing and shortness of breath. Her respiratory symptoms are worse at night. She has been using DayQuil, NyQu il, Mucinex, and albuterol nebulizer treatments. These provide some mild relief. Smokes 1 pack a day. Upon exam, patient is ill-appearing with nasal congestion, rhinorrhea, and moderate inspiratory and expiratory wheezing throughout. 8- Patient has increased aeration and is feeling better after Duoneb. Chest x-ray negative. Patient will be prescribed azithromycin, albuterol nebs and inhaler, and prednisone for lower respiratory infection and asthma exacerbation. Patient agrees with plan. Vital signs stable. Anticipatory guidance given. ED precautions given Differential Diagnosis Differential Diagnosis: URI, bronchitis, asthma exacerbation, pneumonia, sinusitis Imaging Data Radiologist's impression: ITS Impressions Chest X-Ray 04/06/25 19:15 IMPRESSION: No acute lung findings.] [ ] Critical Care Time Critical Care Time Critical Care Time: No Discharge Plan Discharge Clinical Impression: Acute lower respiratory infection Asthma exacerbation Qualifiers: Asthma severity: unspecified severity Asthma persistence: unspecified Qualified Code(s): J45.901 - Unspecified asthma with (acute) exacerbation Patient Disposition: Home Condition: Stable Instructions: Asthma (DC) Additional Instructions: Please take all medications as prescribed. Follow-up with your PCP in 3 days if symptoms are not improving, or sooner if symptoms worsen. Please go to the ER immediately if your wheezing or shortness of breath worsens and cannot be controlled with the prescribed medications. Patient Language: Gabonese Prescriptions: New prednisone 50 mg tablet 50 mg PO DAILY 5 Days Qty: 5 0RF albuterol sulfate 90 mcg/actuation HFA aerosol inhaler 2 inh inhalation Q4-6H PRN (Reason: shortness of breath or wheezing) Qty: 8.5 0RF albuterol sulfate 2.5 mg /3 mL (0.083 %) solution for nebulization 2.5 mg inhalation Q6H PRN (Reason: shortness of breath or wheezing) Qty: 90 0RF azithromycin 250 mg tablet 250 mg PO DAILY Qty: 6 0RF Rx Instructions: take 500 mg today (day 1), then 250 mg daily on days 2-5. No Action buspirone 15 mg tablet 15 mg PO PRN PRN (Reason: Panic Attack(S)) rosuvastatin 10 mg tablet ropinirole 2 mg tablet See Rx Instructions .ROUTE .COMPLEX Qty: 30 0RF Dose Instruction: TAKE 1 TABLET BY MOUTH ONCE DAILY AT BEDTIME Rx Instructions: TAKE 1 TABLET BY MOUTH ONCE DAILY AT BEDTIME Time of Disposition: 19:21
[2025-04-06 19:05] VITALS: PULSE 92; RESP 20; O2SAT 98
== END 2025-04-06 19:25 | disposition home or self-care (01) ==
PROVIDERS: Emergency Provider Nurse Practitioner
DX: J22 Unspecified acute lower respiratory infection (principal); J45.901 Unspecified asthma with (acute) exacerbation; F17.210 Nicotine dependence, cigarettes, uncomplicated; F41.9 Anxiety disorder, unspecified; F32.A Depression, unspecified; G25.81 Restless legs syndrome
CPT/HCPCS: 71046; 94640; 99213; G0463